=== PATIENT | female | born 1965 | race Caucasian/White ===

== ENCOUNTER → 2016-06-06 | Outpatient (CLI) | payer MEDICAID ==
[~2016-06-06] MED LIST: ACHD5005 PO; ALBU2.5V52 INH; ALPR.5T PO; ALPR0.254 PO; ALPR1T PO; AMOX-355 PO; BACL20TA PO; BENZ100C8 PO; DCS100C PO; FLC1T PO; FLT05NA16 NSEACH; FLUO20CA25 PO; FLUO40CA12 PO; FOLIC ACID; HYDR-229 PO; HYDR1TAB PO; HYOS0.1217 PO; LACT10SO33 PO; LEVO750T24 PO; LORA-407 PO; NAPR500T3 PO; NSTU5 PO; ONDA8TAB6 PO; POLY17PO23 PO; PROM25TA14 PO; QUET150T PO; RIZA10TA20 PO; SENN8.6T80 PO; SEROQUEL; TPR25T PO; TRAM50TA2 PO; TRAZ100T92 PO; TRZ100T; WHEA730P PO
--- OUTSIDE RECORDS SUMMARY | 2016-06-06 09:14 | XMS REPORT | Continuity of Care Document ---
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 Medications Current Home Medications Medication Dose Units Route Directions Days/Qty Instructions Start Date Rizatriptan Benzoate 10 Mg/Tab 0 Oral As Directed 1 tab at onset; repeat after 2 hours if significant relief is not attained; maximum: 3 tabs in a 24-hour period 10/22/12 Fluoxetine Hcl 40 Mg 40 Mg Oral Bedtime 10/22/12 Topiramate 25 Mg 25 Mg Oral Twice A Day 10/22/12 Alprazolam 0.25 Mg 0.25 Mg Oral Three Times A Day 05/02/15 Trazodone Hcl 100 Mg 100 Mg Oral Bedtime 05/02/15 Baclofen 20 Mg 20 Mg Oral Bedtime 05/02/15 Naproxen 500 Mg 500 Mg Oral Twice A Day 05/02/15 Promethazine Hcl (Phenergan Tablet) 25 Mg 25 Mg Oral Every 6 Hours as needed for Nausea/Vomiting 05/02/15 Past Home Medications Medication Directions Ordered Status Fluoxetine Hcl (Prozac) 20 Mg Capsule, 40 Mg Oral Daily 04/10/09 Discontinued Trazodone Hcl 100 Mg Tablet, 04/10/09 Discontinued Alprazolam 0.5 Mg Tablet, 1 Mg Oral Daily 04/10/09 Discontinued Acetaminophen/Hydrocodone Bitart 1 Each Tablet, 1 Each Oral Q4hr Prn Discontinued Amoxicillin/Clavulanate Potassium 1 Each Tablet, 1 Each Oral Twice A Day 05/19 Discontinued Ondansetron Hcl 8 Mg Tablet, 8 Mg Oral Three Times A Day 06/22/09 Discontinued Docusate Sodium 100 Mg Cap, 300 Mg Oral Twice A Day 05/16/10 Discontinued Wheat Dextrin 730 Gm Powder, 730 Gm Oral Twice A Day 05/16/10 Discontinued Senna 8.6 Mg Tab, 8.6 Mg Oral Twice A Day 05/16/10 Discontinued Polyethylene Glycol 17 Gm Pack, 17 Gm Oral Daily 05/16/10 Discontinued Lactulose 10 G/15 Ml Btl, 30 Ml Oral 3-4 Times Daily 05/16/10 Discontinued Acetaminophen/Hydrocodone Bitart 1 Each Tablet, 1 Each Oral Q 4 - 6 Hrs Prn 11/21/11 Discontinued Lorazepam 2 Mg Tablet, 1 Tab Oral Twice Daily And Prn 01/25/12 Discontinued Acetaminophen/Hydrocodone Bitart 1 Each Tablet, 1 - 2 Each Oral Every 6 Hours as needed 01/25/12 Discontinued Hyoscyamine Sulfate 0.125 Mg Tab.rapdis, 0.125 Mg Oral 05/13/12 Discontinued [Folic Acid] , 05/13/12 Discontinued [Folic Acid] , 05/13/12 Discontinued Topiramate 25 Mg Tablet, 1 Tab Oral Daily 10/05/12 Discontinued [Seroquel] , 10/05/12 Discontinued Tramadol Hcl 50 Mg Tablet, 50 Mg Oral Every 4HRS 10/05/12 Discontinued Alprazolam 1 Mg Tab, 1 Mg Oral Daily 10/22/12 Discontinued Folic Acid 1 Mg Tablet, 1 Tab Oral Daily 10/22/12 Discontinued Quetiapine Fumarate 150 Mg Tab.sr.24h, 150 Mg Oral Bedtime 10/22/12 Discontinued Benzonatate 100 Mg Capsule, 100 Mg Oral Three Times A Day as needed 10/22/12 Discontinued Fluticasone Propionate 16 Gm [place], 2 Sprays Each Nostril Daily 10/22/12 Discontinued Nystatin 5 Ml Susp, 5 Ml Oral Give Every 6 Hr On Schedule 10/29/12 Discontinued Levofloxacin 750 Mg Tablet, 750 Mg Oral Daily@1100 10/29/12 Discontinued Albuterol Sulfate 2.5 Mg/3 Ml Nebu, 2.5 Mg Inhalation Respiratory Four Times A Day 10/29/12 Discontinued Social History Social History Problem Response Recorded Date/Time Alcohol Use Denies Use 10/07/2013 12:30am Recreational Drug Use No 10/07/2013 12:30am Recent Foreign Travel No 10/07/2013 12:30am Recent Infectious Disease Exposure No 10/07/2013 12:30am Hospitalization with Isolation Denies 10/07/2013 12:30am Sexually Transmitted Disease No 10/07/2013 12:30am HIV/AIDS No 10/07/2013 12:30am Sexually Transmitted Disease No 10/07/2013 12:30am Hospitalization with Isolation Denies 10/07/2013 12:30am Hospital Discharge Instructions No hospital discharge instructions. Plan of Care Discharge Date 02/08/16 10:31am Instructions/Education Provided DR. SMALLS-POST EPIDURAL INST Prescriptions See Medication Section Functional Status No functional status results. Allergies, Adverse Reactions, Alerts Allergen Type Severity Reaction Status Last Updated Sulfa (Sulfonamide Antibiotics) ([id number]) Allergy Unknown Active simvastatin ([id number]) Allergy Mild Active 06/30/12 Immunizations No immunization records. Vital Signs Acute Vital Signs Vital Response Date/Time Temperature (Fahrenheit) 98.1 degrees F (97.6 - 99.5) 02/08/2016 9:53am Temperature (Calculated Celsius) 36.13978 degrees C (36.4 - 37.5) 02/08/2016 9:53am Temperature Source Tympanic 02/08/2016 9:53am Pulse Rate (adult) 62 bpm (60 - 90) 02/08/2016 10:30am Respiratory Rate 19 bpm (12 - 24) 02/08/2016 10:30am O2 Sat by Pulse Oximetry 99 % (88 - 100) 02/08/2016 10:30am Blood Pressure 121/81 mm Hg 02/08/2016 10:30am Blood Pressure Mean 81 mm Hg 02/08/2016 9:53am Pain Numeric Pain Scale 2 02/08/2016 10:30am Height (Feet) 5 feet 02/08/2016 9:53am Height (Inches) 2.00 inches 02/08/2016 9:53am Height (Calculated Centimeters) 157.125551 cm 02/08/2016 9:53am Weight (Pounds) 129 pounds 02/08/2016 9:53am Weight (Ounces) 0.0 oz 02/08/2016 9:53am Weight (Calculated Grams) 91363.42 gm 02/08/2016 9:53am Weight (Calculated Kilograms) 58.231551 kilograms 02/08/2016 9:53am Calculated BMI 23.6 02/08/2016 9:53am Results No known relevant diagnostic tests, laboratory data and/or discharge summary. Procedures No known history of procedures. Encounters Encounter Location Arrival/Admit Date Discharge/Depart Date Attending Provider Departed Clinic [facility] 02/08/16 9:37am 02/08/16 10: 31am ALBA SMALLS MD
--- NOTE | 2016-06-06 10:59 | Diagnostic Imaging Report ---
PROCEDURE: MRI lumbar spine. TECHNIQUE: Multiplanar, multisequence MRI of the lumbar spine was performed without contrast. INDICATION: Back pain. FINDINGS: There are no previous MRI examinations available for comparison. The plain film examination of the lumbar spine performed on 08/10/2015 failed to show any sign of an acute abnormality. On this exam, the parasagittal images show the vertebral body heights and alignment to be within normal limits and similar to the plain film study. The intervertebral spaces are also well maintained although there is desiccation of the disc at every level, particularly at L3-L4 and L4-L5. At the L3-L4 level, there is a slight disc bulge centrally. The disc flattens the ventral aspect of the thecal sac and narrows the AP diameter to approximately 11.8 mm. There is mild narrowing of the neural foramina bilaterally at this level. At the L4-L5 level, there is also a disc bulge centrally. The disc narrows the AP diameter to 10.4 mm. There is moderate narrowing of the neural foramina bilaterally at this level. There is also slight disc bulge centrally at L5-S1. The AP diameter of the thecal sac at this level is narrowed to 12.1 mm. There is mild narrowing of the neural foramina bilaterally at this level as well. The remainder of the lumbar spine is unremarkable for spinal stenosis or nerve root encroachment. There is no abnormal signal arising from the osseous structures to suggest bone edema or fracture. There is no sign of a cord lesion either. There is no paraspinal mass visualized. IMPRESSION: 1. There is mild degenerative disc disease at L3-L4, L4-L5, and L5-S1. There is no evidence for central stenosis at any of these levels, but there is mild narrowing of the neural foramina bilaterally at L3-L4 and L5-S1 and moderate narrowing of the neural foramina bilaterally at L4-L5. 2. There is no sign of an acute bony abnormality or of a cord lesion. Dictated by: Dictated on workstation # [id number]
== END ==
LOC: RAD 09:11
PROVIDERS: ATTEND Pain Medicine Pain Medicine
DX: M54.5 Low back pain (principal)
CPT/HCPCS: 72148

== ENCOUNTER 2016-07-25 10:23 | Outpatient (CLI) | payer MEDICAID ==
[~2016-07-25] VITALS: Ht 157.5 cm; Wt 54.4 kg
--- OUTSIDE RECORDS SUMMARY | 2016-07-25 10:26 | XMS REPORT | Continuity of Care Document ---
Author Author [facility] Organization [facility] Address Unknown Phone Unavailable Care Team Providers Care Service Delivery Supervisor Name Role Phone VIRGINIA WAITE DO PCP Insurance Providers Payer Name Policy Number Subscriber Name Relationship Self Pay Ivett Montiel 18 Self / Same As Patient Advance Directives Directive Response Recorded Date/Time Advance Directives No 02/08/16 9:53am Health Care Power of Back Pad Inspector No 02/08/16 9:53am Organ Donor Yes 02/08/16 [...] needed 10/22/12 Discontinued Fluticasone Propionate 16 Gm [place], 2 Sprays Each Nostril Daily 10/22/12 Discontinued [...] Reaction Status Last Updated Sulfa (Sulfonamide Antibiotics) ([id number]) Allergy Unknown Active simvastatin ([id number]) Allergy Mild Active 06/30/12 Immunizations No immunization records. Vital Signs Acute Vital Signs Vital Response Date/Time Temperature (Fahrenheit) 98.1 degrees F (97.6 - 99.5) 02/08/2016 9:53am Temperature (Calculated Celsius) 36.37558 degrees C (36.4 - 37.5) 02/08/2016 9:53am [...] 2.00 inches 02/08/2016 9:53am Height (Calculated Centimeters) 157.011059 cm 02/08/2016 9:53am Weight (Pounds) 129 pounds 02/08/2016 9:53am Weight (Ounces) 0.0 oz 02/08/2016 9:53am Weight (Calculated Grams) 39172.42 gm 02/08/2016 9:53am Weight (Calculated Kilograms) 58.302882 kilograms 02/08/2016 9:53am Calculated BMI 23.6 02/08/2016 9:53am Results No known relevant diagnostic tests, laboratory data and/or discharge summary. Procedures No known history of procedures. Encounters Encounter Location Arrival/Admit Date Discharge/Depart Date Attending Provider Departed Clinic [facility] 02/08/16 9:37am 02/08/16 10: 31am ALBA SMALLS MD
[2016-07-25] MEDS ORDERED: TRIAMCINOLONE ACET (KENALOG-40) 40 MG/ML 1 ML VIAL ONE (10:29)
[2016-07-25] MEDS ORDERED: BUPIVACAINE 0.25% 30 ML (SENSORCAINE) VIAL ONE (10:29)
[2016-07-25 10:37] VITALS: BP 93/65
[2016-07-25 11:15] VITALS: BP 81/68
--- NOTE | 2016-07-25 11:51 | Pain Medicine-Procedure ---
Procedure Pre-Op/Post-Op Diagnosis Diagnosis: disc disorder with radiculopathy, lumbar Indications for Operation low back and hip pain Attending Surgeon Nathalia Procedure Date of Service: Jul 25, 2016 Procedure: Lumbar Epidural Steroid Injection at the L5/S1 Level under Fluoroscopic Guidance and left sacroiliac joint injection Procedure: Patient was identified in the holding area. After risks, benefits, and alternatives were discussed with the patient, informed consent was obtained. Patient was brought to the fluoroscopy suite and placed prone on the procedure room table. A time out was performed. Vital signs were monitored throughout the procedure. The patients low back was prepped and draped in the usual sterile fashion. The patients skin was anesthetized using 2% Lidocaine. A Tuohy needle was inserted and advanced to the L5-S1 epidural space under fluoroscopic guidance using the loss of resistance technique and intermittent projection of fluoroscopy. There was no paresthesia with needle placement. The needle position was confirmed in both the AP and lateral view. After negative aspiration 2ml of non-ionic contrast was injected under live fluoroscopy which showed good spread of the contrast in the epidural space at the appropriate level, there was no intravascular or subarachnoid spread. Again, after negative aspiration for heme or CSF, 2 ml of 0.25% Bupivicaine, 2ml of preservative free normal saline, and 80mg of Kenalog was injected. The needle was removed and a sterile bandage was placed. Attention was then directed to the left sacroiliac joint which was identified under fluoroscopic guidance. The skin overlying the posterior inferior one third of the sacroiliac joint was anesthetized with 1 percent lidocaine and a 22 -gauge 3-1/2 inch needle was inserted and advanced into the joint. Following negative aspiration a total of 40 mg of Kenalog and 2 mL of 0.25 percent bupivacaine was injected. Needle was flushed with lidocaine and removed. Sterile bandage was applied. Patient tolerated the procedures well with no apparent complications. Complications None ALBA SMALLS MD Jul 25, 2016 11:51 am
== END 2016-07-25 11:16 | disposition home or self-care (01) ==
LOC: CARD 10:23
PROVIDERS: ATTEND Pain Medicine Pain Medicine
DX: M51.16 Intervertebral disc disorders with radiculopathy, lumbar region (principal); M53.3 Sacrococcygeal disorders, not elsewhere classified; Z79.899 Other long term (current) drug therapy
CPT/HCPCS: 27096; 62323

== ENCOUNTER 2017-07-02 13:19 | Outpatient (CLI) | payer MEDICAID ==
[~2017-07-02] VITALS: Ht 157.5 cm; Wt 61.2 kg
[~2017-07-02 13:19] MED LIST changes: +NAPR-915 PO; -NAPR500T3 PO
[2017-07-02] MEDS ORDERED: methylPREDNISolone 80 MG/ML (DEPO MEDROL) VIAL ONE (13:21)
[2017-07-02 13:30] VITALS: BP 113/64
[2017-07-02] MEDS ORDERED: LIDOCAINE 1% INJ 50 ML (XYLOCAINE) VIAL ONE (13:44)
[2017-07-02 13:53] VITALS: BP 115/70
== END 2017-07-02 13:55 ==
LOC: CARD 13:19
PROVIDERS: ATTEND Pain Medicine Interventional Pain Medicine
DX: M47.816 Spondylosis without myelopathy or radiculopathy, lumbar region (principal)
CPT/HCPCS: 62323

== ENCOUNTER 2017-08-27 12:55 | Outpatient (CLI) | payer MEDICAID ==
[~2017-08-27] VITALS: Ht 157.5 cm; Wt 61.2 kg
[~2017-08-27 12:55] MED LIST changes: +TRAZ-190 PO; -TRAZ100T92 PO
[2017-08-27] MEDS ORDERED: methylPREDNISolone 80 MG/ML (DEPO MEDROL) VIAL ONE (13:16)
[2017-08-27 13:46] VITALS: BP 114/76
[2017-08-27] MEDS ORDERED: LIDOCAINE 1% INJ 50 ML (XYLOCAINE) VIAL ONE (13:50)
[2017-08-27 14:02] VITALS: BP 113/79
--- NOTE | 2017-08-27 23:12 | OPERATIVE REPORT ---
DATE OF SERVICE: 08/27/2017 DIAGNOSIS: Lumbar spondylosis. OPERATIVE PROCEDURE: Right-sided facet joint nerve block at L2, 3, 4, and 5. ANESTHESIA: IV sedation COMPLICATIONS: None. CLINICAL SURGICAL COURSE: After being placed under general sedation, the patient was placed on the table in the prone position. The lower lumbar region was prepped with Betadine and dressed with sterile drapery. A syringe of 2% Lidocaine solution, a 25-gauge, 1.5 in needle was used to draw a wheel over an area in between the transverse process and the sacral ala and over the transverse process of L2, 3, 4, and 5 on the right side. Then using a 25-gauge, 3.5 in spinal needle under fluoroscopy, 1 cc of the Lidocaine solution was injected at the area calculated to be the medial branch at the three levels. The needle was then withdrawn, anesthetizing as it was withdrawn. The patient was allowed to come out of anesthesia and returned to the postop area. The patient had no complications and reported significant decrease in her pain level. Job ID: [id number] DocumentID: [id number] Dictated Date: 08/27/2017 14:01:17 Certified Fire Investigator Date: 08/27/2017 23:11:40 Dictated By: MATTHEW RODRIGUEZ DO
== END 2017-08-27 14:03 ==
LOC: CARD 12:55
PROVIDERS: ATTEND Pain Medicine Interventional Pain Medicine
DX: M47.816 Spondylosis without myelopathy or radiculopathy, lumbar region (principal); M47.817 Spondylosis without myelopathy or radiculopathy, lumbosacral region; M51.37 Other intervertebral disc degeneration, lumbosacral region
CPT/HCPCS: 62323; 64493; 64494; 64495

== ENCOUNTER 2017-12-18 10:10 | Outpatient (RCR) | payer MEDICAID | END 2018-01-06 14:21 | disposition home or self-care (01) | PROVIDERS: ATTEND Nurse Practitioner | DX: M51.16 Intervertebral disc disorders with radiculopathy, lumbar region (principal) ==

== ENCOUNTER → 2018-01-13 | Outpatient (CLI) | payer MEDICAID ==
--- NOTE | 2018-01-13 09:15 | Diagnostic Imaging Report ---
PROCEDURE: MRI lumbar spine. TECHNIQUE: Multiplanar, multisequence MRI of the lumbar spine was performed without contrast. INDICATION: Back pain, bilateral hip pain. Exam compared 06/06/2016. FINDINGS; Lumbar body heights are maintained. The alignment is anatomic. Conus normal. The nerves of the cauda equina reveal a normal pattern of dispersal. Without an appreciable fracture line, there is some new mild marrow edema involving the right L4 and L5 pedicles and at least left-sided L5 pedicle. There is also some right greater than left-sided posterior paraspinal muscular edema from the L4 through the upper S1 levels. No paravertebral fluid collection. Visualized psoas musculature normal. No vertebral body marrow edema. The alignment is stable and normal. No endplate irregularity. Desiccated bulging disc at L4-L5 results in mild bilateral greater right neural foraminal stenosis and a mild degree of central canal narrowing is present also secondary to facet arthrosis and thickening of the ligamenta of flava. More mild degenerative changes in the discs, endplates and posterior elements of L5-S1 stable without resultant stenosis. Remaining levels unremarkable. IMPRESSION: Posterior paraspinal muscle edema mid to lower lumbar spine asymmetric greater right than left with mild lower lumbar pedicular marrow edema without fracture line. Correlate with injury as the pattern suggests a sequelae of a strain. No fluid collection, abscess or vertebral body abnormality. No intrathecal or acute epidural disease. Increased posterior element degenerative changes at the L4-L5 level with mild canal and right greater than left foraminal stenosis. Remaining levels unremarkable. Dictated by: Dictated on workstation # [id number]
== END ==
LOC: RAD 08:06
PROVIDERS: ATTEND Pain Medicine Interventional Pain Medicine
DX: M48.061 Spinal stenosis, lumbar region without neurogenic claudication (principal); M47.816 Spondylosis without myelopathy or radiculopathy, lumbar region; M51.37 Other intervertebral disc degeneration, lumbosacral region; G95.19 Other vascular myelopathies
CPT/HCPCS: 72148

== ENCOUNTER 2019-01-16 06:42 | Emergency (ER) | payer MEDICAID ==
[~2019-01-16] VITALS: Ht 210.8 cm; Wt 61.2 kg
[2019-01-16] MEDS ORDERED: fentaNYL INJECTION 100 MCG/2 ML AMP ONE (07:09)
--- NOTE | 2019-01-16 07:22 | ED Hip Pain/Injury ---
General Chief Complaint: Hip/Pelvic Problems Stated Complaint: SEVERE HIP PAIN Nursing Triage Note: PT AMBULATED W LIMP CO OF R HIP PAIN AND BACK PAIN STATES HAS DGD AND GETS INJECTIONS REGULARLY, STATES ROAD IN A CAR YESTERDAY AND SINCE HAS SEVERE BACK PAIN THAT GOES INTO HIP Source: patient Exam Limitations: no limitations History of Present Illness Date Seen by Provider: Jan 16, 2019 Time Seen by Provider: 07:17 Initial Comments This 51-year-old female presents complaining of severe low back pain. She has well documented lumbar disc disease. She is followed by the pain specialist at [facility] where fell and has recently received injections into her SI joints for treatment of her low back pain. Patient denies associated bowel or bladder dysfunction. She's had no fever or chills. She denies foot drop or numbness in the legs. Patient's had no dysuria, frequency, or flank pain. Patient would like help with her back pain and will follow-up with [facility] sore throat tomorrow. Allergies and Home Medications Allergies Coded Allergies: simvastatin (Unverified Allergy, Mild, 06/30/12) Sulfa (Sulfonamide Antibiotics) (Unverified Allergy, Unknown, 10/22/12) Home Medications Alprazolam 0.25 Mg Tablet, 0.25 MG PO TID, (Reported) Baclofen 20 Mg Tablet, 20 MG PO HS, (Reported) Fluoxetine Hcl 40 Mg Capsule, 40 MG PO HS, (Reported) Naproxen 500 Mg Tablet, 500 MG PO BID, (Reported) Promethazine HCl 25 Mg Tablet, 25 MG PO Q6H PRN for NAUSEA/VOMITING, (Reported) Rizatriptan Benzoate 10 Mg/Tab Tab.rapdis, 0 PO UD, (Reported) 1 tab at onset;repeat after 2 hours if significant relief is not attained; maximum: 3 tabs in a 24-hour period Topiramate 25 Mg Tab, 25 MG PO BID, (Reported) Trazodone HCl 100 Mg Tablet, 100 MG PO HS, (Reported) Patient Home Medication List Home Medication List Reviewed: Yes Review of Systems Constitutional: no symptoms reported EENTM: no symptoms reported Respiratory: no symptoms reported; No cough Cardiovascular: no symptoms reported; No chest pain Gastrointestinal: No abdominal pain, No diarrhea, No nausea, No vomiting Genitourinary: no symptoms reported Musculoskeletal: see HPI, back pain (low right lumbar) Skin: no symptoms reported Psychiatric/Neurological: No Symptoms Reported Past Jjhsrbs-Prsefk-Mrkpni Hx Past Med/Social Hx: Reviewed Nursing Past Med/Soc Hx Patient Social History Alcohol Use: Denies Use Recreational Drug Use: No Smoking Status: Current Everyday Smoker Type Used: Cigarettes 2nd Hand Smoke Exposure: No Recent Foreign Travel: No Contact w/Someone Who Travel: No Recent Infectious Disease Expo: No Recent Hopitalizations: No Immunizations Up To Date Tetanus Booster (TDap): Less than 5yrs Date of Pneumonia Vaccine: Oct 11, 2012 Date of Influenza Vaccine: Feb 28, 2015 Seasonal Allergies Seasonal Allergies: No Past Medical History Surgeries: Yes (DXLS FOR OVARIAN CYST X3, STENT IN PANCREAS, LEFT SHOULDER, LEFT KNEE) Respiratory: Yes (tobaccoism) Chronic Bronchitis Cardiac: No Neurological: Yes Reproductive Disorders: Yes Female Reproductive Disorders: Ovarian Cyst Sexually Transmitted Disease: No HIV/AIDS: No Gastrointestinal: Yes (CONSTIPATION, HX OF STENT IN PANCREAS) Pancreatitis Musculoskeletal: Yes Degenerate Disk Disease, Chronic Back Pain Endocrine: No Loss of Vision: Denies Hearing Impairment: Denies Cancer: No Psychosocial: Yes (INSOMNIA) Depression Integumentary: No Blood Disorders: No Adverse Reaction/Blood Tranf: No Family Medical History Heart Disease, Hypertension Physical Exam Vital Signs Vital Signs - First Documented 01/16/19 06:50 Temp 96.9 Pulse 77 Resp 18 B/P (MAP) 103/45 (64) Pulse Ox 100 Capillary Refill : Less Than 3 Seconds Height, Weight, BMI Height: 5'23.00" Weight: 135lbs. 0.0oz. 61.345810yz; 24.7 BMI Method:Stated General Appearance: Anxious, Cachetic, Mild Distress HEENT: Normal ENT Inspection Neck: Normal Inspection, Supple Cardiovascular: Regular Rate, Rhythm, No Murmur Respiratory: Lungs Clear, Normal Breath Sounds Gastrointestinal: Normal Bowel Sounds, Non Tender, Soft Extremity: Normal Capillary Refill, Normal Inspection, Normal Range of Motion Neurologic/Psychiatric: Oriented x3, No Motor/Sensory Deficits Skin: Normal Color, Warm/Dry Progress/Results/Core Measures Results/Orders Vital Signs/I&O 01/16/19 06:50 Temp 96.9 Pulse 77 Resp 18 B/P (MAP) 103/45 (64) Pulse Ox 100 Blood Pressure Mean: 64 Progress Progress Note : Time: 07:22 Progress Note Patient is given 50 g of fentanyl IM for her low back pain. Initial ECG Impression Date: Jan 16, 2019 Departure Impression Primary Impression: Low back pain Qualified Codes: M54.5 - Low back pain Disposition: 01 HOME, SELF-CARE Condition: Improved Departure-Patient Inst. Decision time for Depature: 07:23 Referrals: NO,LOCAL PHYSICIAN (PCP) Primary Care Physician Patient Instructions: Low Back Pain in Adults Add. Discharge Instructions: Flexeril and Toradol as prescribed. Follow-up with your pain management doctor tomorrow. Return if any problems or questions. All discharge instructions reviewed with patient and/or family. Voiced understanding. Scripts Cyclobenzaprine HCl (Cyclobenzaprine HCl) 10 Mg Tablet 10 MG PO TID PRN for SPASMS, #20 TAB Prov: ANALY STOREY MD 01/16/19 Ketorolac Tromethamine (Ketorolac Tromethamine) 10 Mg Tablet 10 MG PO Q6H PRN for PAIN-MODERATE, #20 TAB Prov: ANALY STOREY MD 01/16/19 ANALY STOREY MD Jan 16, 2019 07:22
[2019-01-16 07:28] VITALS: BP 103/45
[2019-01-16] MEDS ORDERED: KETO10TA PO (07:28)
[2019-01-16] MEDS ORDERED: CYCL10TA9 PO (07:28)
== END 2019-01-16 07:38 | disposition home or self-care (01) ==
LOC: EDUNIT# 06:42 → ER 06:45
DX: M54.5 Low back pain (principal); M51.36 Other intervertebral disc degeneration, lumbar region; J42 Unspecified chronic bronchitis; F32.9 Major depressive disorder, single episode, unspecified; G47.00 Insomnia, unspecified; F17.210 Nicotine dependence, cigarettes, uncomplicated; Z88.8 Allergy status to other drugs, medicaments and biological substances; Z88.2 Allergy status to sulfonamides; Z82.49 Family history of ischemic heart disease and other diseases of the circulatory system
CPT/HCPCS: 96372; 99284

== ENCOUNTER → 2019-03-24 | Outpatient (CLI) | payer OTHER ==
[~2019-03-24] MED LIST changes: +CYCL10TA9 PO; +KETO10TA PO
--- NOTE | 2019-03-24 11:02 | Diagnostic Imaging Report ---
Pelvis and bilateral hips at 1015 hours. INDICATION: Bilateral hip pain. Single AP view of the pelvis and AP and lateral views of both hips were obtained. FINDINGS: There is no fracture, dislocation or acute bony abnormality evident. The hip and sacroiliac joints are fairly well maintained and appear similar to the prior exam of 01/11/2008. The soft tissues are unremarkable. There is a metallic figure of 8 overlying the right ilium. There is also another metallic density overlying the left mid abdomen. Reportedly these are extraneous to the patient. IMPRESSION: There is no evidence for an acute bony abnormality. Dictated by: Dictated on workstation # [id number]
== END ==
LOC: RAD 09:36
PROVIDERS: ATTEND Surgery
DX: Z02.71 Encounter for disability determination (principal); M25.551 Pain in right hip; M25.552 Pain in left hip
CPT/HCPCS: 73523

== ENCOUNTER 2019-04-17 08:41 | Emergency (ER) | payer MEDICAID, OTHER ==
[~2019-04-17] VITALS: Ht 157 cm; Wt 54.9 kg
[2019-04-17] MEDS ORDERED: fentaNYL INJECTION 100 MCG/2 ML AMP IM ONE (09:30)
--- NOTE | 2019-04-17 09:37 | ED Back Pain ---
General Chief Complaint: Back Problems Stated Complaint: LOW BACK PAIN; NASAL PAIN Nursing Triage Note: Patient ambulatory to ER FT1 with complaint of a sore nose from bhlowing her nose. She states it has been red and inflamed for 2 days. She has been taking OTC benadryl, using warm compresses, peroxide and triple antibiotic ointment with no relief. Patient also complains of tenderness to the right side of her neck and a headache. Patient also complains of lower back pain which is chronic. She states she was scheduled for back injections on thursday but was unable to make the appointment since she was sick. She does have an appointment scheduled for this . She has had no recent new injuries. Nursing Sepsis Screen: No Definite Risk Source of Information: Patient Exam Limitations: No Limitations History of Present Illness Date Seen by Provider: Apr 17, 2019 Time Seen by Provider: 09:32 Initial Comments This 51-year-old white female presents with exacerbation of her chronic low back pain and infection to the soft tissues of the nose. The patient has significant disc disease as seen on her CTs to the lumbar spine. She received some periodic injections to the back which is significantly help with her sciatica. She is scheduled for injections this coming (4 days). The patient has had to receive an occasional injection of fentanyl to relieve her acute back pain. Patient denies foot drop or urinary or bowel retention. The patient has had a significant rhinorrhea causing her blow her nose so frequently that she is developed cellulitis to the tip of the nose. Allergies and Home Medications Allergies Coded Allergies: simvastatin (Unverified Allergy, Mild, 06/30/12) Sulfa (Sulfonamide Antibiotics) (Unverified Allergy, Unknown, 10/22/12) Home Medications Naproxen 500 Mg Tablet, 500 MG PO BID, (Reported) Trazodone HCl 100 Mg Tablet, 100 MG PO HS, (Reported) Patient Home Medication List Home Medication List Reviewed: Yes Review of Systems Constitutional: No chills, No fever EENTM: other (pain to the tip of the nose with associated redness swelling) Respiratory: No cough Cardiovascular: No chest pain Gastrointestinal: No abdominal pain, No nausea Genitourinary: No dysuria, No frequency Musculoskeletal: see HPI, back pain Skin: No change in color, No rash Psychiatric/Neurological: No Symptoms Reported Past Vccwmcl-Diezag-Ilnaxj Hx Past Med/Social Hx: Reviewed Nursing Past Med/Soc Hx Patient Social History Alcohol Use: Denies Use Recreational Drug Use: No Smoking Status: Current Everyday Smoker Type Used: Cigarettes 2nd Hand Smoke Exposure: No Recent Foreign Travel: No Contact w/Someone Who Travel: No Recent Infectious Disease Expo: No Recent Hopitalizations: No Physical Abuse: No Sexual Abuse: No Mistreated: No Fear: No Immunizations Up To Date Tetanus Booster (TDap): Less than 5yrs Date of Pneumonia Vaccine: Oct 11, 2012 Date of Influenza Vaccine: Feb 28, 2019 Seasonal Allergies Seasonal Allergies: No Past Medical History Surgeries: Yes (DXLS FOR OVARIAN CYST X3, STENT IN PANCREAS, LEFT SHOULDER, LEFT KNEE) Section, Orthopedic Respiratory: Yes (tobaccoism) Chronic Bronchitis Cardiac: No Neurological: Yes Reproductive Disorders: Yes Female Reproductive Disorders: Ovarian Cyst Sexually Transmitted Disease: No HIV/AIDS: No Gastrointestinal: Yes (CONSTIPATION, HX OF STENT IN PANCREAS) Pancreatitis Musculoskeletal: Yes Degenerate Disk Disease, Chronic Back Pain Endocrine: No Loss of Vision: Denies Hearing Impairment: Denies Cancer: No Psychosocial: Yes (INSOMNIA) Depression Integumentary: No Blood Disorders: No Adverse Reaction/Blood Tranf: No Family Medical History Heart Disease, Hypertension Physical Exam Vital Signs Vital Signs - First Documented 04/17/19 08:55 Temp 36.8 Pulse 115 Resp 18 B/P (MAP) 94/67 (76) Pulse Ox 98 O2 Delivery Room Air Capillary Refill : Less Than 3 Seconds Height, Weight, BMI Height: 5'23.00" Weight: 135lbs. 0.0oz. 61.716455dy; 22.00 BMI Method:Stated General Appearance: Mild Distress HEENT: Other (there is cellulitis to the distal portion of the tip of the nose. No abscesses present.) Neck: Full Range of Motion, Normal Inspection Cardiovascular: Regular Rate, Rhythm Respiratory: Chest Non Tender Gastrointestinal: Normal Bowel Sounds Back: Other (there is tenderness palpation over both SI joints.) Extremity: Normal Capillary Refill, Normal Inspection Neurologic/Psychiatric: No Motor/Sensory Deficits Skin: Normal Color, Warm/Dry Progress/Results/Core Measures Results/Orders Vital Signs/I&O 04/17/19 08:55 Temp 36.8 Pulse 115 Resp 18 B/P (MAP) 94/67 (76) Pulse Ox 98 O2 Delivery Room Air Blood Pressure Mean: 76 POS Progress Progress Note : Time: 09:38 Progress Note I discussed the cellulitis to the nose and the flare of the low back disc disease. Patient received 50 g of fentanyl IM in the emergency department. She was placed on Augmentin 875 twice a day for the next week. She was asked follow up with her caregivers on Thursday. She was invited to return to the emergency department if she had any further problems or questions. Departure Impression Primary Impression: Back pain Qualified Codes: M54.5 - Low back pain; G89.29 - Other chronic pain Additional Impression: Cellulitis Qualified Codes: L03.211 - Cellulitis of face Disposition: HOME, SELF-CARE Condition: Improved Departure-Patient Inst. Decision time for Depature: 09:39 Referrals: [facility]/BASSAM CORTEZ,LOCAL PHYSICIAN (PCP) Primary Care Physician Patient Instructions: Cellulitis (Skin Infection), Adult (DC), Low Back Pain (DC) Add. Discharge Instructions: Augmentin as prescribed. [facility]. Return if any problems or questions. All discharge instructions reviewed with patient and/or family. Voiced understanding. Scripts Amoxicillin/Potassium Clav (Augmentin 875-125 Tablet) 1 Each Tablet 1 EACH PO BID for 7 Days, #14 TAB 0 Refills Prov: ANALY STOREY MD 04/17/19 ANALY STOREY MD Apr 17, 2019 09:37 POS
[2019-04-17] MEDS ORDERED: AMOX-358 PO (09:41)
[2019-04-17 09:50] VITALS: BP 94/67
--- OUTSIDE RECORDS SUMMARY | 2019-05-12 18:08 | XMS REPORT ---
Author Author Ivett CERVANTES Organization [facility] Address [address] [place] [address] Care Team Providers Care Rehabilitation Attendant Name Role Phone JESSICASelvin KYLAH Unavailable PROBLEMS Type Condition ICD9-CM Code TGP87-HX Code Onset Dates Condition S tatus SNOMED Code Problem Lumbar back pain with radiculopathy affecting le ft lower extremity M54.17 Active 980817686 Problem Tobacco abuse Z72.0 Active 524880 000 Problem Controlled substance agreement terminated Z92.89 Active 181941116 Problem Seasonal allergic rhinitis, unspecified allergic rhinitis trigger J30.2 Active 321760585 ALLERGIES No Information ENCOUNTERS Encounter Location Date Diagnosis [facility] [address] [facility] [id number] [address] [place] [id number] Feb, Acute right otitis media H66 .91 ; Acute otitis externa of right ear, unspecified type H60.501 and Nausea R11.0 [facility] [address] [facility] [id number] [address] [place] [id number] Jan, Non-recurrent acute suppurat raymond otitis media of right ear without spontaneous rupture of tympanic membrane H66.001 [facility] [address] [facility] [id number] [address] [place] [id number] Jan, [facility] [address] [facility] [id number] [address] [place] [id number] Nov, [facility] [address] [place] [id number] [address] [place] [id number] Nov, Well woman exam with routine gynecological exam Z01.419 and Breast cancer screening Z12.39 [facility] [address] [facility] [id number] [address] [place] [id number] Nov, Lumbar back pain with radicu lopathy affecting left lower extremity M54.17 [facility] [address] [facility] [id number] [address] [place] [address] Jun, Seborrheic keratoses L82.1 [facility] [address] [facility] [id number] [address] [place] [id number] Jun, Thyroid disorder E07.9 [facility] [address] [facility] [id number] [address] [place] [phone] Jun, Thyroid disorder E07.9 [facility] [address] [facility] [id number] [address] [place] [phone] May, Thyroid disorder E07.9 and S kin lesion L98.9 [place] [address] [facility] [id number] [address] [place] [id number] May, [facility] [address] [facility] [id number] [address] [place] [phone] Feb, Canker sores oral K12.0 [place] [address] [facility] [id number] [address] [place] [phone] Jan, Grade II hemorrhoids K64.1 [place] [address] [place] [id number] [address] [place] [id number] Nov, Right foot pain M79.671 [place] [address] [place] [id number] [address] [place] [id number] Feb, Encounter for special screen ing examination Z13.9 and Encounter for immunization Z23 [place] [address] [facility] [id number] [address] [place] [phone] Oct, Tobacco abuse Z72.0 and Lumb ar back pain with radiculopathy affecting left lower extremity M54.17 [place] [address] [facility] [id number] [address] [place] [id number] September, Non-intractable vomiting wit h nausea, unspecified vomiting type R11.2 and Epigastric pain R10.13 [place] [address] [place] [id number] [address] [place] [id number] Aug, Seasonal allergic rhinitis, unspecified allergic rhinitis trigger J30.2 and Stomatitis K12.1 [facility] [address] [id number] [address] [place] [id number] May, Nasal abscess J34.0 [facility] [address] [id number] [address] [place] [id number] Oct, Controlled substance agreeme nt terminated Z92.89 [facility] [address] [id number] [address] [place] [id number] Oct, [place] [address] [facility] [id number] [address] [place] [id number] September, Pharyngitis, unspecified giulia ology J02.9 and Other forms of stomatitis K12.1 [place] [address] [facility] [id number] [address] [place] [id number] September, [facility] [address] [id number] [address] [place] [id number] September, Aphthous ulcer of mouth K12. 0 [place] [address] [facility] [id number] [address] [place] [id number] September, Dental examination Z01.20 [place] [address] [facility] [id number] [address] [place] [id number] September, Other seasonal allergic rhin itis J30.2 ; Anxiety F41.9 and Insomnia G47.00 [facility] [address] [id number] [address] [place] [id number] Aug, Dental caries K02.9 [facility] [address] [id number] [address] [place] [id number] Aug, Encounter for dental examina tion Z01.20 [facility] [address] [id number] [address] [place] [id number] Jul, Encounter for dental examina tion Z01.20 [place] [address] [place] [id number] [address] [place] [address] Jul, Anxiety F41.9 ; Insomnia G47 .00 ; Chronic left-sided low back pain with sciatica, sciatica laterality unspecified M54.40 and Nausea R11.0 [facility] [address] [address] May, Scratched by cat, initial en counter W55.03XA [facility] [address] [id number] May, [place] [address] [address] May, [place] [address] [address] Apr, Insomnia G47.00 and Bilatera l low back pain with left-sided sciatica M54.42 [place] [address] [address] Mar, Anxiety F41.9 ; Insomnia G47 .00 ; Family history of colon cancer Z80.0 ; History of colon polyps Z86.010 ; Diarrhea R19.7 and Headache R51 [place] [address] [address] Mar, [address] [address] Mar, Gastroenteritis K52.9 [place] [address] [address] Jan, Left upper arm pain 729.5 ; Anxiety state, unspecified 300.00 and Left upper extremity numbness 782.0 [place] [address] [address] Jan, Carpal tunnel syndrome 354.[address] [address] Dec, Tobacco abuse 305.1 [facility] [address] [place] [id number] [address] [place] [phone] Nov, Headache 784.0 [facility] [address] [place] [id number] [address] [place] [id number] Nov, Bronchiolitis 466.19 and Tob acco abuse 305.1 [facility] [address] [address] Oct, Anxiety state, unspecified 3 00.00 ; Insomnia, unspecified 780.52 ; Pain in joint, site unspecified 719.40 ; Migraine, unspecified without mention of intractable migraine without mention of status migrainosus 346.90 and 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 [place] [address] [address] September, [place] [address] [address] September, Nondependent tobacco use dis order 305.1 ; Routine child health exam V20.2 ; Migraine, unspecified without mention of intractable migraine without mention of status migrainosus 346.90 ; Dietary counseling and surveillance V65.3 ; Hip pain, right 719.45 ; Exercise counseling V65.41 ; COPD (chronic obstructive pulmonary disease) 496 and Anxiety state, unspecified 300.00 [facility] [address] [place] [id number] [address] [place] [id number] Aug, [facility] [address] [place] [id number] [address] [place] [id number] Aug, [facility] [address] [place] [id number] [address] [place] [id number] Jul, [facility] [address] [place] [id number] [address] [place] [id number] Jul, [facility] [address] [place] [id number] [address] [place] [id number] Jul, [facility] [address] [id number] [address] [place] [address], [place] [address] Jul, [facility] [address] [id number] [address] [place] [address], [place] [address] Jul, [facility] [address] [id number] [address] [place] [address], [place] [address] Jul, [facility] [address] [id number] [address] [place] [address], [place] [id number] Jul, [facility] [address] [id number] [address] [place] [address], [place] [address] Jul, [facility] [address] [id number] [address] [place] [address], [place] [address] Jun, [facility] [address] [id number] [address] [place] [address], [place] [address] Jun, [facility] [address] [id number] [address] [place] [address], [place] [address] Jun, [facility] [address] [id number] [address] [place] [address], [place] [address] Jun, [facility] [address] [id number] [address] [place] [address], [place] [address] May, [facility] [address] [id number] [address] [place] [address], [place] [address] May, [facility] [address] [id number] [address] [place] [address], [place] [address] Apr, [facility] [address] [id number] [address] [place] [address], [place] [address] Apr, [facility] [address] [id number] [address] [place] [address], [place] [address] Apr, [facility] [address] [id number] [address] [place] [address], [place] [address] Apr, [facility] [address] [id number] [address] [place] [address], [place] [address] Feb, [facility] [address] [id number] [address] [place] [address], [place] [address] Feb, [facility] [address] [id number] [address] [place] [address], [place] [address] Feb, [facility] [address] [id number] [address] [place] [address], [place] [address] Feb, [facility] [address] [id number] [address] [place] [address], [place] [address] Jan, [facility] [address] [id number] [address] [place] [address], [place] [address] Jan, [facility] [address] [id number] [address] [place] [address], [place] [address] Jan, [facility] [address] [id number] [address] [place] [address], [place] [address] Jan, [facility] [address] [id number] [address] [place] [address], [place] [address] Jan, [facility] [address] [id number] [address] [place] [address], [place] [address] Jan, [facility] [address] [id number] [address] [place] [address], [place] [address] Dec, [facility] [address] [id number] [address] [place] [address], [place] [address] Dec, [facility] [address] [id number] [address] [place] [address], [place] [address] Dec, [facility] [address] [id number] [address] [place] [address], [place] [address] Dec, [facility] [address] [id number] [address] [place] [address], [place] [address] Dec, [facility] [address] [id number] [address] [place] [address], [place] [address] Dec, [facility] [address] [id number] [address] [place] [id number] Dec, [facility] [address] [id number] [address] [place] [id number] Dec, [facility] [address] [id number] [address] [place] [id number] Dec, [facility] [address] [id number] [address] [place] [phone] Nov, [facility] [address] [id number] [address] [place] [id number] Nov, [facility] [address] [id number] [address] [place] [phone] Nov, [facility] [address] [id number] [address] [place] [id number] Nov, [facility] [address] [id number] [address] [place] [id number] Nov, [facility] [address] [id number] [address] [place] [id number] Nov, [facility] [address] [id number] [address] [place] [id number] Nov, [facility] [address] [id number] [address] [place] [id number] Nov, [facility] [address] [id number] [address] [place] [id number] Nov, [facility] [address] [id number] [address] [place] [id number] Nov, [facility] [address] [id number] [address] [place] [id number] Nov, [facility] [address] [id number] [address] [place] [phone] Nov, IMMUNIZATIONS No Known Immunizations SOCIAL HISTORY Never Assessed REASON FOR VISIT PLAN OF CARE VITAL SIGNS Height 62 in 2013-11-30 Weight 132.5 lbs 2013-11-30 Temperature 96.7 degrees Fahrenheit 2013-11-30 Heart Rate 76 bpm 2013-11-30 Respiratory Rate 16 2013-11-30 Blood pressure systolic 88 mmHg 2013-11-30 Blood pressure diastolic 62 mmHg 2013-11-30 MEDICATIONS No Known Medications RESULTS No Results PROCEDURES Procedure Date Ordered Result Body Site COMPLETE CBC W/AUTO DIFF WBC November 30, 2013 ASSAY THYROID STIM HORMONE November 30, 2013 ASSAY OF LIPASE November 30, 2013 ASSAY OF AMYLASE November 30, 2013 COMPREHEN METABOLIC PANEL November 30, 2013 ASSAY OF VITAMIN D November 30, 2013 VISIT November 30, 2013 VENIPUNCT, ROUTINE* November 30, 2013 INSTRUCTIONS MEDICATIONS ADMINISTERED No Known Medications MEDICAL (GENERAL) HISTORY Type Description Date Medical History endometriosis Medical History ovarian cysts Medical History hyperthyroidism hx Medical History migraines Medical History Anxiety and Depression Medical History insomnia Medical History allergic rhinitis Medical History Arthritis Medical History Migraine Medical History Tobacco Abuse Medical History Chronic pancreatitis Medical History History of colon polyps Medical History Tubular adenoma of colon Medical History Controlled substance agreement terminate d Surgical History section 2005 Surgical History laparoscopic ovarian cyst drained Hospitalization History surgeries Hospitalization History [facility], PT was going to harm herself. there on Thu and out on August 2016
--- OUTSIDE RECORDS SUMMARY | 2019-05-12 18:08 | XMS REPORT ---
Author Author Ivett CERVANTES Organization [facility] Address [address] [place] [address] Care Team Providers Care Carpet Jack Name Role Phone JESSICASelvin KYLAH Unavailable PROBLEMS Type Condition ICD9-CM Code UMU30-JE Code Onset Dates Condition S tatus SNOMED Code Problem Lumbar back pain with radiculopathy affecting le ft lower extremity M54.17 Active 215249121 Problem Tobacco abuse Z72.0 Active 073419 000 Problem Controlled substance agreement terminated Z92.89 Active [id number] Problem Seasonal allergic rhinitis, unspecified allergic rhinitis trigger J30.2 Active [id number] ALLERGIES No Information ENCOUNTERS Encounter Location Date Diagnosis [facility] [address] [facility] [id number] [address] [place] [phone] Feb, Acute right otitis media H66 .91 ; Acute otitis externa of right ear, unspecified type H60.501 and Nausea R11.0 [facility] [address] [facility] [id number] [address] [place] [phone] Jan, Non-recurrent acute suppurat raymond otitis media of right ear without spontaneous rupture of tympanic membrane H66.001 [facility] [address] [facility] [id number] [address] [place] [phone] Jan, [facility] [address] [facility] [id number] [address] [place] [phone] Nov, [facility] [address] [place] [id number] [address] [place] [address] Nov, Well woman exam with routine gynecological exam Z01.419 and Breast cancer screening Z12.39 [facility] [address] [facility] [id number] [address] [place] [phone] Nov, Lumbar back pain with radicu lopathy affecting left lower extremity M54.17 [facility] [address] [facility] [id number] [address] [place] [address] Jun, Seborrheic keratoses L82.1 [facility] [address] [facility] [id number] [address] [place] [phone] Jun, Thyroid disorder E07.9 [facility] [address] [facility] [id number] [address] [place] [phone] Jun, Thyroid disorder E07.9 [facility] [address] [facility] [id number] [address] [place] [phone] May, Thyroid disorder E07.9 and S kin lesion L98.9 [place] [address] [facility] [id number] [address] [place] [phone] May, [facility] [address] [facility] [id number] [address] [place] [phone] Feb, Canker sores oral K12.0 [place] [address] [facility] [id number] [address] [place] [address] Jan, Grade II hemorrhoids K64.1 [place] [address] [place] [id number] [address] [place] [address] Nov, Right foot pain M79.671 [place] [address] [place] [id number] [address] [place] [phone] Feb, Encounter for special screen ing examination Z13.9 and Encounter for immunization Z23 [place] [address] [facility] [id number] [address] [place] [phone] Oct, Tobacco abuse Z72.0 and Lumb ar back pain with radiculopathy affecting left lower extremity M54.17 [place] [address] [facility] [id number] [address] [place] [address] September, Non-intractable vomiting wit h nausea, unspecified vomiting type R11.2 and Epigastric pain R10.13 [place] [address] [place] [id number] [address] [place] [phone] Aug, Seasonal allergic rhinitis, unspecified allergic rhinitis trigger J30.2 and Stomatitis K12.1 [facility] [address] [id number] [address] [place] [address] May, Nasal abscess J34.0 [facility] [address] [id number] [address] [place] [phone] Oct, Controlled substance agreeme nt terminated Z92.89 [facility] [address] [id number] [address] [place] [phone] Oct, [place] [address] [facility] [id number] [address] [place] [phone] September, Pharyngitis, unspecified giulia ology J02.9 and Other forms of stomatitis K12.1 [place] [address] [facility] [id number] [address] [place] [phone] September, [facility] [address] [id number] [address] [place] [address] September, Aphthous ulcer of mouth K12. 0 [place] [address] [facility] [id number] [address] [place] [address] September, Dental examination Z01.20 [place] [address] [facility] [id number] [address] [place] [phone] September, Other seasonal allergic rhin itis J30.2 ; Anxiety F41.9 and Insomnia G47.00 [facility] [address] [id number] [address] [place] [id number] Aug, Dental caries K02.9 [facility] [address] [id number] [address] [place] [id number] Aug, Encounter for dental examina tion Z01.20 [facility] [address] [id number] [address] [place] [id number] Jul, Encounter for dental examina tion Z01.20 [place] [address] [place] [id number] [address] [place] [address] Jul, Anxiety F41.9 ; Insomnia G47 .00 ; Chronic left-sided low back pain with sciatica, sciatica laterality unspecified M54.40 and Nausea R11.0 [facility] [address] [address] May, Scratched by cat, initial en counter W55.03XA [facility] [address] [address] May, [place] [address] [id number] May, [place] [address] [address] Apr, Insomnia G47.00 and Bilatera l low back pain with left-sided sciatica M54.42 [place] [address] [address] Mar, Anxiety F41.9 ; Insomnia G47 .00 ; Family history of colon cancer Z80.0 ; History of colon polyps Z86.010 ; Diarrhea R19.7 and Headache R51 [place] [address] [address] Mar, [address] [address] Mar, Gastroenteritis K52.9 [place] [address] [id number] Jan, Left upper arm pain 729.5 ; Anxiety state, unspecified 300.00 and Left upper extremity numbness 782.0 [place] [address] [address] Jan, Carpal tunnel syndrome 354.[address] [address] Dec, Tobacco abuse 305.1 [facility] [address] [place] [id number] [address] [place] [phone] Nov, Headache 784.0 [facility] [address] [place] [id number] [address] [place] [address] Nov, Bronchiolitis 466.19 and Tob acco abuse 305.1 [facility] [address] [id number] Oct, Anxiety state, unspecified 3 00.00 ; Insomnia, unspecified 780.52 ; Pain in joint, site unspecified 719.40 ; Migraine, unspecified without mention of intractable migraine without mention of status migrainosus 346.90 and 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 [place] [address] [address] September, [place] [address] [address] September, Nondependent tobacco use dis order 305.1 ; Routine child health exam V20.2 ; Migraine, unspecified without mention of intractable migraine without mention of status migrainosus 346.90 ; Dietary counseling and surveillance V65.3 ; Hip pain, right 719.45 ; Exercise counseling V65.41 ; COPD (chronic obstructive pulmonary disease) 496 and Anxiety state, unspecified 300.00 [facility] [address] [place] [id number] [address] [place] [phone] Aug, [facility] [address] [place] [id number] [address] [place] [id number] Aug, [facility] [address] [place] [id number] [address] [place] [address] Jul, [facility] [address] [place] [id number] [address] [place] [phone] Jul, [facility] [address] [place] [id number] [address] [place] [phone] Jul, [facility] [address] [id number] [address] [place] [address], [place] [address] Jul, [facility] [address] [id number] [address] [place] [address], [place] [address] Jul, [facility] [address] [id number] [address] [place] [address], [place] [address] Jul, [facility] [address] [id number] [address] [place] [address], [place] [address] Jul, [facility] [address] [id number] [address] [place] [address], [place] [address] Jul, [facility] [address] [id number] [address] [place] [address], [place] [address] Jun, [facility] [address] [id number] [address] [place] [address], [place] [address] Jun, [facility] [address] [id number] [address] [place] [address], [place] [address] Jun, [facility] [address] [id number] [address] [place] [address], [place] [address] Jun, [facility] [address] [id number] [address] [place] [address], [place] [address] May, [facility] [address] [id number] [address] [place] [address], [place] [address] May, [facility] [address] [id number] [address] [place] [address], [place] [address] Apr, [facility] [address] [id number] [address] [place] [address], [place] [address] Apr, [facility] [address] [id number] [address] [place] [address], [place] [address] Apr, [facility] [address] [id number] [address] [place] [address], [place] [address] Apr, [facility] [address] [id number] [address] [place] [address], [place] [address] Feb, [facility] [address] [id number] [address] [place] [address], [place] [address] Feb, [facility] [address] [id number] [address] [place] [address], [place] [address] Feb, [facility] [address] [id number] [address] [place] [address], [place] [address] Feb, [facility] [address] [id number] [address] [place] [address], [place] [address] Jan, [facility] [address] [id number] [address] [place] [address], [place] [address] Jan, [facility] [address] [id number] [address] [place] [address], [place] [address] Jan, [facility] [address] [id number] [address] [place] [address], [place] [address] Jan, [facility] [address] [id number] [address] [place] [address], [place] [address] Jan, [facility] [address] [id number] [address] [place] [address], [place] [address] Jan, [facility] [address] [id number] [address] [place] [address], [place] [address] Dec, [facility] [address] [id number] [address] [place] [address], [place] [address] Dec, [facility] [address] [id number] [address] [place] [address], [place] [address] Dec, [facility] [address] [id number] [address] [place] [address], [place] [address] Dec, [facility] [address] [id number] [address] [place] [address], [place] [address] Dec, [facility] [address] [id number] [address] [place] [address], [place] [address] Dec, [facility] [address] [id number] [address] [place] [address] Dec, [facility] [address] [id number] [address] [place] [address] Dec, [facility] [address] [id number] [address] [place] [id number] Dec, [facility] [address] [id number] [address] [place] [phone] Nov, [facility] [address] [id number] [address] [place] [address] Nov, [facility] [address] [id number] [address] [place] [id number] Nov, [facility] [address] [id number] [address] [place] [address] Nov, [facility] [address] [id number] [address] [place] [address] Nov, [facility] [address] [id number] [address] [place] [address] Nov, [facility] [address] [id number] [address] [place] [phone] Nov, [facility] [address] [id number] [address] [place] [address] Nov, [facility] [address] [id number] [address] [place] [address] Nov, [facility] [address] [id number] [address] [place] [address] Nov, [facility] [address] [id number] [address] [place] [address] Nov, [facility] [address] [id number] [address] [place] [id number] Nov, IMMUNIZATIONS No Known Immunizations SOCIAL HISTORY Never Assessed REASON FOR VISIT PLAN OF CARE VITAL SIGNS MEDICATIONS No Known Medications RESULTS No Results PROCEDURES No Known procedures INSTRUCTIONS MEDICATIONS ADMINISTERED No Known Medications MEDICAL [...]
--- OUTSIDE RECORDS SUMMARY | 2019-05-12 18:10 | XMS REPORT | Continuity of Care Document ---
Author Organization Unknown Address Unknown Phone Unavailable Allergies Active Description Code Type Severity Reaction Onset Reported/Identified Relationship to Patient Clinical Status Yes simvastatin [id number] Drug Aller gy Mild N/A 04/10/2009 Yes Sulfa (Sulfonamide Antibiotics) [id number] Drug Allergy Unknown N/A 013 Yes Sulfa (Sulfonamide Antibiotics) Drug Allergy N/A N/A 11/08/2013 Medications There is no data. 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 06/01/2011 Ot 564.00 UNS PEC CONSTIPATION 11/21/2011 Ot 577.0 ACUT E PANCREATITIS 11/21/2011 Ot 789.09 ABD OMINAL PAIN, OTHER SPECIFIED SITE 01/25/2012 Ot 789.01 ABD OMINAL PAIN, RIGHT UPPER QUADRANT 01/25/2012 Ot 789.06 ABD OMINAL PAIN, EPIGASTRIC 05/13/2012 Ot 789.06 ABD OMINAL PAIN, EPIGASTRIC 10/05/2012 JERAMIE STERN Ot 842.00 SPRAIN OF WRIST NOS 10/05/2012 JERAMIE STERN Ot 845.00 SPRAIN OF ANKLE NOS 10/05/2012 JERAMIE STERN Ot 959.3 ELB/FOREARM/WRST INJ NOS 10/05/2012 JERAMIE STERN Ot E000.8 OTHER EXTERNAL CAUSE STATUS 10/05/2012 JERAMIE STERN Ot E029.9 OTHER ACTIVITY 10/05/2012 JERAMIE STERN Ot E849.4 ACCID IN RECREATION AREA 10/05/2012 JERAMIE STERN Ot E888.9 FALL NOS 10/29/2012 LARON HOUGH MD Ot 112.0 THRUSH 10/29/2012 LARON HOUGH MD Ot 276.1 HYPOSMOLALITY 10/29/2012 LARON HOUGH MD Ot 276.69 OTHER FLUID OVERLOAD 10/29/2012 LARON HOUGH MD Ot 276.8 HYPOPOTASSEMIA 10/29/2012 LARON HOUGH MD Ot 300.29 OTHER ISOLATED OR SPECIFIC PHOBIAS 10/29/2012 LARON HOUGH MD Ot 305.1 TOBACCO USE DISORDER 10/29/2012 LARON HOUGH MD Ot 346.90 MIGRAINE UNSPECIFIED W/O INTRACT MGRN W/ 10/29/2012 LARON HOUGH MD Ot 48 6 PNEUMONIA, ORGANISM NOS 10/29/2012 LARON HOUGH MD Ot 577.0 ACUTE PANCREATITIS 10/29/2012 LARON HOUGH MD Ot 780.52 INSOMNIA, UNSPECIFIED 10/29/2012 LARON HOUGH MD Ot V03.82 PROPHYLACTIC VACC AGAINST STREPTOCOCCUS 11/13/2012 WARREN GREEN, EDI Best Ot 577 .0 ACUTE PANCREATITIS 10/07/2013 KENNY HENRY MD Ot 311 DEPRESSIVE DISORDER NEC 10/07/2013 KENNY HENRY MD Ot 491. 9 CHRONIC BRONCHITIS NOS 10/07/2013 KENNY HENRY MD Ot 883. 0 OPEN WOUND OF FINGER 10/07/2013 KENNY HENRY MD Ot E029 .9 OTHER ACTIVITY 10/07/2013 KENNY HENRY MD Ot E920 .4 ACCID-OTHER HAND TOOLS 10/07/2013 KENNY HENRY MD Ot V06. 1 [id number], COMBINED [ 11/08/2013 VIRGINIA WAIET DO 346.90 MIGRAINE UNSPECIFIED WITHOUT MENTION OF INTRACTABLE MIGRAINE WITHOUT MENTION OF STATUS MIGRAINOSUS 11/08/2013 KYLAH CERVANTES APRN 346 .90 MIGRAINE UNSPECIFIED WITHOUT MENTION OF INTRACTABLE MIGRAINE WITHOUT MENTION OF STATUS MIGRAINOSUS 11/08/2013 KYLAH CERVANTES APRN 346 .90 MIGRAINE UNSPECIFIED WITHOUT MENTION OF INTRACTABLE MIGRAINE WITHOUT MENTION OF STATUS MIGRAINOSUS 11/08/2013 POORNIMA ARIZA APRN 346.90 MIGRAINE UNSPECIFIED WITHOUT MENTION OF INTRACTABLE MIGRAINE WITHOUT MENTION OF STATUS MIGRAINOSUS 11/08/2013 KYLAH CERVANTES APRN 346 .90 MIGRAINE UNSPECIFIED WITHOUT MENTION OF INTRACTABLE MIGRAINE WITHOUT MENTION OF STATUS MIGRAINOSUS 11/08/2013 MADL TITLE INSPECTOR, KYLAH L 346 .90 MIGRAINE UNSPECIFIED WITHOUT MENTION OF INTRACTABLE MIGRAINE WITHOUT MENTION OF STATUS MIGRAINOSUS 11/08/2013 ELODIA CALLE ALBA 346.90 MIGRAINE UNSPECIFIED WITHOUT MENTION OF INTRACTABLE MIGRAINE WITHOUT MENTION OF STATUS MIGRAINOSUS 11/08/2013 MADL TITLE INSPECTORKYLAH L 346 .90 MIGRAINE UNSPECIFIED WITHOUT MENTION OF INTRACTABLE MIGRAINE WITHOUT MENTION OF STATUS MIGRAINOSUS 11/08/2013 DANIA JIMÉNEZ MD 346.9 0 MIGRAINE UNSPECIFIED WITHOUT MENTION OF INTRACTABLE MIGRAINE WITHOUT MENTION OF STATUS MIGRAINOSUS 11/08/2013 WAITE DO VIRGINIA K 346.90 MIGRAINE UNSPECIFIED WITHOUT MENTION OF INTRACTABLE MIGRAINE WITHOUT MENTION OF STATUS MIGRAINOSUS 11/08/2013 VIRGINIA WAITE DO 346.90 MIGRAINE UNSPECIFIED WITHOUT MENTION OF INTRACTABLE MIGRAINE WITHOUT MENTION OF STATUS MIGRAINOSUS 11/08/2013 DANIA JIMÉNEZ MD 346.9 0 MIGRAINE UNSPECIFIED WITHOUT MENTION OF INTRACTABLE MIGRAINE WITHOUT MENTION OF STATUS MIGRAINOSUS 11/30/2013 MADL TITLE INSPECTOR, KYLAH L 300 .00 ANXIETY UNSPEC 11/30/2013 MADL TITLE INSPECTOR, KYLAH L 577 .1 CHRONIC PANCREATITIS 11/30/2013 MADL TITLE INSPECTOR, KYLAH L 719 .40 PAIN IN JOINT SITE UNSPECIFIED 11/30/2013 MADL TITLE INSPECTOR, KYLAH L 780 .79 OTHER MALAISE AND FATIGUE 11/30/2013 MADL TITLE INSPECTOR, KYLAH L 300 .00 ANXIETY UNSPEC 11/30/2013 MADL TITLE INSPECTOR, KYLAH L 577 .1 CHRONIC PANCREATITIS 11/30/2013 MADL TITLE INSPECTOR, KYLAH L 719 .40 PAIN IN JOINT SITE UNSPECIFIED 11/30/2013 MADL TITLE INSPECTOR, KYLAH L 780 .79 OTHER MALAISE AND FATIGUE 11/30/2013 ARIZA TITLE INSPECTOR, POORNIMA R 300.00 ANXIETY UNSPEC 11/30/2013 ARIZA TITLE INSPECTOR, POORNIMA R 577.1 CHRONIC PANCREATITIS 11/30/2013 ARIZA TITLE INSPECTOR, POORNIMA R 719.40 PAIN IN JOINT SITE UNSPECIFIED 11/30/2013 ARIZA TITLE INSPECTOR, POORNIMA R 780.79 OTHER MALAISE AND FATIGUE 11/30/2013 MADL TITLE INSPECTOR, KYLAH L 300 .00 ANXIETY UNSPEC 11/30/2013 MADL TITLE INSPECTOR, KYLAH L 577 .1 CHRONIC PANCREATITIS 11/30/2013 MADL TITLE INSPECTOR, KYLAH L 719 .40 PAIN IN JOINT SITE UNSPECIFIED 11/30/2013 MADL TITLE INSPECTOR, KYLAH L 780 .79 OTHER MALAISE AND FATIGUE 11/30/2013 MADL TITLE INSPECTOR, KYLAH L 300 .00 ANXIETY UNSPEC 11/30/2013 MADL TITLE INSPECTORSAHILKYLAH L 577 .1 CHRONIC PANCREATITIS 11/30/2013 MADL TITLE INSPECTOR, KYLAH L 719 .40 PAIN IN JOINT SITE UNSPECIFIED 11/30/2013 MADL TITLE INSPECTOR KYLAH L 780 .79 OTHER MALAISE AND FATIGUE 11/30/2013 CLIFTON DDS, ALBA 300.00 ANXIETY UNSPEC 11/30/2013 CLIFTON DDS, ALBA 57 7.1 CHRONIC PANCREATITIS 11/30/2013 CLIFTON DDS, ALBA 719.40 PAIN IN JOINT SITE UNSPECIFIED 11/30/2013 CLIFTON DDS, ALBA 780.79 OTHER MALAISE AND FATIGUE 11/30/2013 MADL TITLE INSPECTORSAHILKYLAH L 300 .00 ANXIETY UNSPEC 11/30/2013 MADL TITLE INSPECTORSAHILKYLAH L 577 .1 CHRONIC PANCREATITIS 11/30/2013 MADL SAHIL QUEENNYA L 719 .40 PAIN IN JOINT SITE UNSPECIFIED 11/30/2013 SAHIL CERVANTES APRNNYA L 780 .79 OTHER MALAISE AND FATIGUE 11/30/2013 DANIA JIMÉNEZ MD 300.0 0 ANXIETY UNSPEC 11/30/2013 DANIA JIMÉNEZ MD 577.1 CHRONIC PANCREATITIS 11/30/2013 DANIA JIMÉNEZ MD 719.4 0 PAIN IN JOINT SITE UNSPECIFIED 11/30/2013 DANIA JIMÉNEZ MD 780.7 9 OTHER MALAISE AND FATIGUE 11/30/2013 WAITE DO, VIRGINIA K 300.00 ANXIETY UNSPEC 11/30/2013 WAITE DO, VIRGINIA K 577.1 CHRONIC PANCREATITIS 11/30/2013 WAITE DO, VIRGINIA K 719.40 PAIN IN JOINT SITE UNSPECIFIED 11/30/2013 WAITE DO, VIRGINIA K 780.79 OTHER MALAISE AND FATIGUE 11/30/2013 WAITE DO, VIRGINIA K 300.00 ANXIETY UNSPEC 11/30/2013 WAITE DO, VIRGINIA K 577.1 CHRONIC PANCREATITIS 11/30/2013 VIRGINIA WAITE DO K 719.40 PAIN IN JOINT SITE UNSPECIFIED 11/30/2013 VIRGINIA WAITE DO K 780.79 OTHER MALAISE AND FATIGUE 11/30/2013 DANIA JIMÉNEZ MD 300.0 0 ANXIETY UNSPEC 11/30/2013 DANIA JIMÉNEZ MD 577.1 CHRONIC PANCREATITIS 11/30/2013 DANIA JIMÉNEZ MD 719.4 0 PAIN IN JOINT SITE UNSPECIFIED 11/30/2013 DANIA JIMÉNEZ MD 780.7 9 OTHER MALAISE AND FATIGUE 12/26/2013 JESSICAL TITLE INSPECTOR, KYLAH L 682 .2 CELLULITIS AND ABSCESS OF TRUNK 12/26/2013 TO QUEEN POORNIMA R 682.2 CELLULITIS AND ABSCESS OF TRUNK 12/26/2013 MADL TITLE INSPECTOR, KYLAH L 682 .2 CELLULITIS AND ABSCESS OF TRUNK 12/26/2013 MADL TITLE INSPECTOR, KYLAH L 682 .2 CELLULITIS AND ABSCESS OF TRUNK 12/26/2013 ALBA CLIFTON DDS 68 2.2 CELLULITIS AND ABSCESS OF TRUNK 12/26/2013 MADL TITLE INSPECTOR, KYLAH L 682 .2 CELLULITIS AND ABSCESS OF TRUNK 12/26/2013 DANIA JIMÉNEZ MD 682.2 CELLULITIS AND ABSCESS OF TRUNK 12/26/2013 VIRGINIA WAITE DO K 682.2 CELLULITIS AND ABSCESS OF TRUNK 12/26/2013 VIRGINIA WAITE DO K 682.2 CELLULITIS AND ABSCESS OF TRUNK 12/26/2013 DANIA JIMÉNEZ MD 682.2 CELLULITIS AND ABSCESS OF TRUNK 01/02/2014 MADL TITLE INSPECTOR, KYLAH L 268 .9 UNSPECIFIED VITAMIN D DEFICIENCY 01/02/2014 MADL TITLE INSPECTOR, KYLAH L 477 .9 ALLERGIC RHINITIS CAUSE UNSPECIFIED 01/02/2014 MADL TITLE INSPECTOR, KYLAH L 780 .52 INSOMNIA UNSPECIFIED 01/02/2014 SAMANTHA ARIZA APRNIA R 268.9 UNSPECIFIED VITAMIN D DEFICIENCY 01/02/2014 SAMANTHA ARIZA APRNIA R 477.9 ALLERGIC RHINITIS CAUSE UNSPECIFIED 01/02/2014 SAMANTHA ARIZA APRNIA R 780.52 INSOMNIA UNSPECIFIED 01/02/2014 JESSICAL TITLE INSPECTOR, KYLAH L 268 .9 UNSPECIFIED VITAMIN D DEFICIENCY 01/02/2014 MADL TITLE INSPECTORVIOLETTAA L 477 .9 ALLERGIC RHINITIS CAUSE UNSPECIFIED 01/02/2014 JESSICAL TITLE INSPECTORVIOLETTA WaltonA L 780 .52 INSOMNIA UNSPECIFIED 01/02/2014 JESSICAL TITLE INSPECTORVIOLETTAA L 268 .9 UNSPECIFIED VITAMIN D DEFICIENCY 01/02/2014 MADL TITLE INSPECTORVIOLETTAA L 477 .9 ALLERGIC RHINITIS CAUSE UNSPECIFIED 01/02/2014 MADL TITLE INSPECTOR, KYLAH L 780 .52 INSOMNIA UNSPECIFIED 01/02/2014 CLIFTON DDS, ALBA 26 8.9 UNSPECIFIED VITAMIN D DEFICIENCY 01/02/2014 CLIFTON DDS, ALBA 47 7.9 ALLERGIC RHINITIS CAUSE UNSPECIFIED 01/02/2014 CLIFTON DDS, ALBA 780.52 INSOMNIA UNSPECIFIED 01/02/2014 MADL TITLE INSPECTORVIOLETTA WaltonA L 268 .9 UNSPECIFIED VITAMIN D DEFICIENCY 01/02/2014 MADL TITLE INSPECTORVIOLETTAA L 477 .9 ALLERGIC RHINITIS CAUSE UNSPECIFIED 01/02/2014 MADL TITLE INSPECTORVIOLETTAA L 780 .52 INSOMNIA UNSPECIFIED 01/02/2014 DANIA JIMÉNEZ MD 268.9 UNSPECIFIED VITAMIN D DEFICIENCY 01/02/2014 DANIA JIMÉNEZ MD 477.9 ALLERGIC RHINITIS CAUSE UNSPECIFIED 01/02/2014 DANIA JIMÉNEZ MD 780.5 2 INSOMNIA UNSPECIFIED 01/02/2014 WAITE DO, VIRGINIA K 268.9 UNSPECIFIED VITAMIN D DEFICIENCY 01/02/2014 WAITE DO, VIRGINIA K 477.9 ALLERGIC RHINITIS CAUSE UNSPECIFIED 01/02/2014 WAITE DO, VIRGINIA K 780.52 INSOMNIA UNSPECIFIED 01/02/2014 WAITE DO, VIRGINIA K 268.9 UNSPECIFIED VITAMIN D DEFICIENCY 01/02/2014 WAITE DO, VIRGINIA K 477.9 ALLERGIC RHINITIS CAUSE UNSPECIFIED 01/02/2014 WAITE DO, VIRGINIA K 780.52 INSOMNIA UNSPECIFIED 01/02/2014 DANIA JIMÉNEZ MD 268.9 UNSPECIFIED VITAMIN D DEFICIENCY 01/02/2014 DANIA JIMÉNEZ MD 477.9 ALLERGIC RHINITIS CAUSE UNSPECIFIED 01/02/2014 DANIA JIMÉNEZ MD 780.5 2 INSOMNIA UNSPECIFIED 01/18/2014 POORNIMA ARIZA APRN 305.1 TOBACCO ABUSE 01/18/2014 TO VIDALNPOORNIMA R 461.9 SINUSITIS ACUTE 01/18/2014 MADL TITLE INSPECTOR, KYLAH L 305 .1 TOBACCO ABUSE 01/18/2014 MADL TITLE INSPECTOR, KYLAH L 461 .9 SINUSITIS ACUTE 01/18/2014 MADL TITLE INSPECTOR, KYLAH L 305 .1 TOBACCO ABUSE 01/18/2014 MADL TITLE INSPECTOR, KYLAH L 461 .9 SINUSITIS ACUTE 01/18/2014 CLIFTON DDS, ALBA 30 5.1 TOBACCO ABUSE 01/18/2014 CLIFTON DDS, ALBA 46 1.9 SINUSITIS ACUTE 01/18/2014 MADL TITLE INSPECTOR, KYLAH L 305 .1 TOBACCO ABUSE 01/18/2014 MADL TITLE INSPECTOR, KYLAH L 461 .9 SINUSITIS ACUTE 01/18/2014 DANIA JIMÉNEZ MD 305.1 TOBACCO ABUSE 01/18/2014 DANIA JIMÉNEZ MD 461.9 SINUSITIS ACUTE 01/18/2014 SHANKAR WAITE DOA K 305.1 TOBACCO ABUSE 01/18/2014 SHANKAR WAITE DOA K 461.9 SINUSITIS ACUTE 01/18/2014 WAITE DO VIRGINIA K 305.1 TOBACCO ABUSE 01/18/2014 RAVINDRA KENNEY [place] K 461.9 SINUSITIS ACUTE 01/18/2014 DANIA JIMÉNEZ MD 305.1 TOBACCO ABUSE 01/18/2014 DANIA JIMÉNEZ MD 461.9 SINUSITIS ACUTE 03/07/2014 VIOLETTA CERVANTES APRNA L 627 .8 OTHER SPECIFIED MENOPAUSAL AND POSTMENOPAUSAL DISORDERS 03/07/2014 ALBA CLIFTON DDS 62 7.8 OTHER SPECIFIED MENOPAUSAL AND POSTMENOPAUSAL DISORDERS 03/07/2014 VIOLETTA CERVANTES APRNA L 627 .8 OTHER SPECIFIED MENOPAUSAL AND POSTMENOPAUSAL DISORDERS 03/07/2014 DANIA JIMÉNEZ MD 627.8 OTHER SPECIFIED MENOPAUSAL AND POSTMENOPAUSAL DISORDERS 03/07/2014 VIRGINIA WAITE DO K 627.8 OTHER SPECIFIED MENOPAUSAL AND POSTMENOPAUSAL DISORDERS 03/07/2014 SHANKAR WAITE DOA K 627.8 OTHER SPECIFIED MENOPAUSAL AND POSTMENOPAUSAL DISORDERS 03/07/2014 DANIA JIMÉNEZ MD 627.8 OTHER SPECIFIED MENOPAUSAL AND POSTMENOPAUSAL DISORDERS 06/07/2014 DANIA JIMÉNEZ MD V58.6 9 LONG-TERM (CURRENT) USE OF OTHER MEDICATIONS 06/07/2014 VIRGINIA WAITE DO V58.69 LONG-TERM (CURRENT) USE OF OTHER MEDICATIONS 06/07/2014 VIRGINIA WAITE DO V58.69 LONG-TERM (CURRENT) USE OF OTHER MEDICATIONS 06/07/2014 DANIA JIMÉNEZ MD V58.6 9 LONG-TERM (CURRENT) USE OF OTHER MEDICATIONS 09/01/2014 DANIA JIMÉNEZ MD 716.9 0 UNSPECIFIED ARTHROPATHY SITE UNSPECIFIED 05/07/2015 PAM ABBOTT DO Ot Z01.818 05/08/2015 SEDA GREEN, CISCO Montalvo Ot 786.05 05/08/2015 CISCO STACK MD Ot 786.2 05/08/2015 GIANLUCA GREEN, LARON Carranza Ot 48 6 05/08/2015 PAM ABBOTT DO Ot Z01.818 05/08/2015 Ot 789.00 05/08/2015 Ot 789.00 05/08/2015 PAM ABBOTT DO Ot 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 00 CONSTIPATION, UNSPECIFIED 05/08/2015 PAM ABBOTT DO Ot R19. 7 DIARRHEA, UNSPECIFIED 08/15/2015 Ot M54.5 08/16/2015 Ot M54.5 08/17/2015 ALBA SMALLS MD Ot M51. 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 W RADICULO 08/17/2015 ALBA SMALLS MD Ot Z79.899 OTHER [facility] (CURRENT) DRUG THERAPY 08/28/2015 ALBA SMALLS MD Ot M51. 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 W RADICULO 09/14/2015 ALBA SMALLS MD Ot Z79.899 OTHER FABRIC PATTERN GRADER (CURRENT) DRUG THERAPY 09/24/2015 ALBA SMALLS MD, Ot M47.816 SPONDYLOSIS W/O MYELOPATHY OR RADICULOPA 09/24/2015 ALBA SMALLS MD, Ot M51. 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 W RADICULO 09/24/2015 ALBA SMALLS MD, Ot Z79.899 OTHER FABRIC PATTERN GRADER (CURRENT) DRUG THERAPY 11/26/2015 ALBA SMALLS MD, Ot M47.816 SPONDYLOSIS W/O MYELOPATHY OR RADICULOPA 11/26/2015 ALBA SMALLS MD, Ot M51. 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 W RADICULO 11/26/2015 ALBA SMALLS MD, Ot M70. 62 TROCHANTERIC BURSITIS, LEFT HIP 12/18/2015 ALBA SMALLS MD, Ot M47.816 SPONDYLOSIS W/O MYELOPATHY OR RADICULOPA 12/18/2015 ALBA SMALLS MD, Ot M51. 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 W RADICULO 12/18/2015 ALBA SMALLS MD, Ot M70. 62 TROCHANTERIC BURSITIS, LEFT HIP 01/30/2016 Ot 564.00 UNS PEC CONSTIPATION 01/30/2016 Ot 789.00 ABD OMINAL PAIN, UNSPECIFIED SITE 01/30/2016 Ot M54.5 LOW BACK PAIN 01/30/2016 SEDA GREEN, CISCO Montalvo Ot 786.05 SHORTNESS OF BREATH 01/30/2016 CISCO STACK MD Ot 786.2 COUGH 01/30/2016 Ot 789.00 ABD OMINAL PAIN, UNSPECIFIED SITE 01/31/2016 ALBA SMALLS MD, Ot M47.816 SPONDYLOSIS W/O MYELOPATHY OR RADICULOPA 01/31/2016 ALBA SMALLS MD, Ot M51. 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 W RADICULO 01/31/2016 ALBA SMALLS MD, Ot M70. 62 TROCHANTERIC BURSITIS, LEFT HIP 02/08/2016 ALBA SMALLS MD, Ot M47.816 SPONDYLOSIS W/O MYELOPATHY OR RADICULOPA 02/08/2016 ALBA MSALLS MD, Ot M51. 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 00 CONSTIPATION, UNSPECIFIED 02/13/2016 PAM ABBOTT DO Ot R19. 7 DIARRHEA, UNSPECIFIED 02/21/2016 ALBA SMALLS MD Ot M47.816 SPONDYLOSIS W/O MYELOPATHY OR RADICULOPA 02/21/2016 ALBA SMALLS MD Ot M51. 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 W RADICULO 02/21/2016 ALBA SMALLS MD Ot Z79.899 OTHER [facility] (CURRENT) DRUG THERAPY 04/25/2016 Ot 789.00 ABD OMINAL PAIN, UNSPECIFIED SITE 04/25/2016 Ot 789.00 ABD OMINAL PAIN, UNSPECIFIED SITE 04/25/2016 Ot M54.5 LOW BACK PAIN 04/25/2016 ALBA SMALLS MD Ot M51. 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 W RADICULO 05/14/2016 ALBA SMALLS MD Ot M51. 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 W RADICULO 06/03/2016 Ot 789.00 ABD OMINAL PAIN, UNSPECIFIED SITE 06/03/2016 Ot 789.00 ABD OMINAL PAIN, UNSPECIFIED SITE 06/03/2016 Ot M54.5 LOW BACK PAIN 06/05/2016 Ot 564.00 UNS PEC CONSTIPATION 06/06/2016 Ot 564.00 UNS PEC CONSTIPATION 06/09/2016 ALBA SMALLS MD Ot M54. 5 LOW BACK PAIN 06/09/2016 ALBA SMALLS MD, Ot M54. 5 LOW BACK PAIN 06/26/2016 ALBA SMALLS MD Ot M54. 5 LOW BACK PAIN 07/25/2016 ALBA SMALLS MD Ot M51. 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 W RADICULO 07/25/2016 ALBA SMALLS MD Ot M53. 3 SACROCOCCYGEAL DISORDERS, NOT ELSEWHERE 07/25/2016 ALBA SMALLS MD Ot Z79.899 OTHER FABRIC PATTERN GRADER (CURRENT) DRUG THERAPY 07/30/2016 ALBA SMALLS MD Ot M51. 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 W RADICULO 07/30/2016 ALBA SMALLS MD Ot M53. 3 SACROCOCCYGEAL DISORDERS, NOT ELSEWHERE 07/30/2016 ALBA SMALLS MD, Ot Z79.899 OTHER FABRIC PATTERN GRADER (CURRENT) DRUG THERAPY 08/21/2016 Ot 564.00 UNS PEC CONSTIPATION 08/21/2016 ALBA SMALLS MD Ot M54. 5 LOW BACK PAIN 07/01/2017 ALBA SMALLS MD, Ot M54. 5 LOW BACK PAIN 07/02/2017 MATTHEW RODRIGUEZ DO Ot M47.816 SPONDYLOSIS W/O MYELOPATHY OR RADICULOPA 07/03/2017 MATTHEW RODRIGUEZ DO Ot M47.816 SPONDYLOSIS W/O MYELOPATHY OR RADICULOPA 07/08/2017 MATTHEW RODRIGUEZ DO Ot M47.816 SPONDYLOSIS W/O MYELOPATHY OR RADICULOPA 08/27/2017 MATTHEW RODRIGUEZ DO Ot M47.816 SPONDYLOSIS W/O MYELOPATHY OR RADICULOPA 08/27/2017 MATTHEW RODRIGUEZ DO Ot M47.817 SPONDYLS W/O MYELOPATHY OR RADICULOPATHY 08/27/2017 MATTHEW RODRIGUEZ DO Ot M51.37 OTHER INTERVERTEBRAL DISC DEGENERATION, 08/28/2017 MATTHEW RODRIGUEZ DO Ot M47.816 SPONDYLOSIS W/O MYELOPATHY OR RADICULOPA 08/28/2017 MATTHEW RODRIGUEZ DO Ot M47.817 SPONDYLS W/O MYELOPATHY OR RADICULOPATHY 08/28/2017 MATTHEW RODRIGUEZ DO Ot M51.37 OTHER INTERVERTEBRAL DISC DEGENERATION, 11/19/2017 TOÑITO BROWN TITLE INSPECTOR Ot M51.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 W RADICULO 11/26/2017 TOÑITO BROWN TITLE INSPECTOR Ot M51.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 W RADICULO 12/01/2017 TOÑITO BROWN TITLE INSPECTOR Ot M51.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 W RADICULO 01/06/2018 TOÑITO BROWN TITLE INSPECTOR Ot M51.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 W RADICULO 01/15/2018 HEARNDON DO, MATTHEW L Ot G95.19 OTHER VASCULAR MYELOPATHIES 01/15/2018 HEARNDON DO, MATTHEW L Ot M47.816 SPONDYLOSIS W/O MYELOPATHY OR RADICULOPA 01/15/2018 HEARNDON DO, MATTHEW L Ot M48.061 SPINAL STENOSIS, LUMBAR REGION WITHOUT N 01/15/2018 HEARNDON DO, MATTHEW L Ot M51.37 OTHER INTERVERTEBRAL DISC DEGENERATION, 01/26/2018 HEARNDON DO, MATTHEW L Ot G95.19 OTHER VASCULAR MYELOPATHIES 01/26/2018 HEARNDON DO, MATTHEW L Ot M47.816 SPONDYLOSIS W/O MYELOPATHY OR RADICULOPA 01/26/2018 HEARNDON DO, MATTHEW L Ot M48.061 SPINAL STENOSIS, LUMBAR REGION WITHOUT N 01/26/2018 HEARNDON DO, MATTHEW L Ot M51.37 OTHER INTERVERTEBRAL DISC DEGENERATION, 12/02/2018 SLIM GREEN, ALBA Chambers Ot M54. 5 LOW BACK PAIN 12/02/2018 HEARNDON DO, MATTHEW L Ot G95.19 OTHER VASCULAR MYELOPATHIES 12/02/2018 HEARNDON DO, MATTHEW L Ot M47.816 SPONDYLOSIS W/O MYELOPATHY OR RADICULOPA 12/02/2018 HEARNDON DO, MATTHEW L Ot M48.061 SPINAL STENOSIS, LUMBAR REGION WITHOUT N 12/02/2018 HEARNDON DO, MATTHEW L Ot M51.37 OTHER INTERVERTEBRAL DISC DEGENERATION, 01/16/2019 SLIM RGEEN, ALBA Chambers Ot M54. 5 LOW BACK PAIN 01/16/2019 HEARNDON DOMATTHEW Ot G95.19 OTHER VASCULAR MYELOPATHIES 01/16/2019 HEARNDON DO, MATTHEW L Ot M47.816 SPONDYLOSIS W/O MYELOPATHY OR RADICULOPA 01/16/2019 HEARNDON DOMATTHEW L Ot M48.061 SPINAL STENOSIS, LUMBAR REGION WITHOUT N 01/16/2019 HEARNDON DO, MATTHEW L Ot M51.37 OTHER INTERVERTEBRAL DISC DEGENERATION, 01/20/2019 RALEIGH GEREN, ANALY Humphrey Ot F17.210 NICOTINE DEPENDENCE, CIGARETTES, UNCOMPL 01/20/2019 RALEIGH GREEN, ANALY Humphrey Ot F32. 9 MAJOR DEPRESSIVE DISORDER, SINGLE EPISOD 01/20/2019 ANALY STOREY MD Ot G47. 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 5 LOW BACK PAIN 01/20/2019 ANALY STOREY MD Ot Z82. 49 FAMILY HX OF ISCHEM HEART DIS AND OTH DI 01/20/2019 ANALY STOREY MD Ot Z88. 2 ALLERGY STATUS TO SULFONAMIDES STATUS 01/20/2019 ANALY STOREY MD Ot Z88. 8 ALLERGY STATUS TO OTH DRUG/MEDS/BIOL SUB 03/28/2019 SHEMAR ECHOLS MD (DDU) Ot M25.551 PAIN IN RIGHT HIP 03/28/2019 SHEMAR ECHOLS MD (DDU) Ot M25.552 PAIN IN LEFT HIP 03/28/2019 SHEMAR ECHOLS MD (DDU) Ot Z02.71 ENCOUNTER FOR DISABILITY DETERMINATION 04/17/2019 SHEMAR ECHOLS MD (DDU) Ot M25.551 PAIN IN RIGHT HIP 04/17/2019 SHEMAR ECHOLS MD (DDU) Ot M25.552 PAIN IN LEFT HIP 04/17/2019 SHEMAR ECHOLS MD (DDU) Ot Z02.71 ENCOUNTER FOR DISABILITY DETERMINATION 04/17/2019 ANALY STOREY MD Ot F17.210 NICOTINE DEPENDENCE, CIGARETTES, UNCOMPL 04/17/2019 ANALY STOREY MD Ot F32. 9 MAJOR DEPRESSIVE DISORDER, SINGLE EPISOD 04/17/2019 ANALY STOREY MD Ot G89. 29 OTHER CHRONIC PAIN 04/17/2019 ANALY STOREY MD Ot L03.211 CELLULITIS OF FACE 04/17/2019 ANALY STOREY MD Ot M54. 5 LOW BACK PAIN 04/17/2019 ANALY STOREY MD Ot Z82. 49 FAMILY HX OF ISCHEM HEART DIS AND OTH DI 04/17/2019 ANALY STOREY MD Ot Z88. 2 ALLERGY STATUS TO SULFONAMIDES STATUS 04/17/2019 ANALY STOREY MD Ot Z88. 8 ALLERGY STATUS TO OTH DRUG/MEDS/BIOL SUB Procedures Code [place] [address] THER APUTIC INJ SQ/IM 11/08/2013 J3301 JESSICA LOG INJ, PER 10 MG 11/08/2013 73174 ROUT INE VENIPUNCTURE 11/30/2013 90042 AMERITOX 11/30/2013 45935 CBC 11/30/2013 4797828 GF R CALC (RESULT ONLY) 11/30/2013 66523 CMP 11/30/2013 72912 AMYLASE 11/30/2013 19248 LIPASE 11/30/2013 49492 VIRGEN MIN D 25-HYDROXY (D2,D3, TOTAL) 11/30/2013 44242 TSH 11/30/2013 33729 I/D SIMPLE ABSCESS 01/02/2014 J3301 JESSICA LOG INJ, PER 10 MG 01/02/2014 81308 THER APUTIC INJ SQ/IM 01/02/2014 11847 OXIMETRY 01/18/2014 31501 ROUT INE VENIPUNCTURE 03/07/2014 90912 FSH 03/07/2014 45364 LH 03/07/2014 79046 THER APUTIC INJ SQ/IM 03/07/2014 J1885 KANE DOL INJ 03/07/2014 11838 THER APUTIC INJ SQ/IM 05/05/2014 J1885 KANE DOL INJ 05/05/2014 01457 ROUT INE VENIPUNCTURE 08/07/2014 03594 AMYLASE 08/07/2014 80281 LIPASE 08/07/2014 35781 THER APUTIC INJ SQ/IM 08/28/2014 J1885 KANE DOL INJ 08/28/2014 Results Test Result Range SUREPATH PAP AND HPV mRNA E6/E7 - 14:25 CLINICAL INFORMATION: NRG LMP: NRG PREV. PAP: NRG PREV. BX: NRG SOURCE: Cervix NRG STATEMENT OF ADEQUACY: NRG INTERPRETATION/RESULT: NRG NATIONAL INVESTIGATIVE PRODUCER: NRG HPV mRNA E6/E7, SUREPATH VIAL Not Detected NOT DETECTED COMMENT NRG CULTURE, ANAEROBIC AND AEROBIC - 9 13:00 CULTURE, ANAEROBIC BACTERIA W/GRAM STAIN SEE NOTE NRG CULTURE, AEROBIC BACTERIA SEE NOTE NRG Encounters ACCT No. Visit Date/Time Discharge Status Pt. Type Provider Facility Loc./Unit Complaint [id number] 09/01/2014 08:11:00 09/01/2014 23:59: 59 CLS Outpatient HUERTDANIA APONTE MD [id number] 08/28/2014 12:44:00 08/28/2014 23:59: 59 CLS Outpatient VIRGINIA WAITE DO Estephania [id number] 08/07/2014 14:05:00 08/07/2014 23:59: 59 CLS Outpatient VIRGINIA WAITE DO Estephania [id number] 07/07/2014 08:02:00 07/07/2014 23:59: 59 CLS Outpatient DANIA JIMÉNEZ MD [id number] 06/07/2014 14:29:00 06/07/2014 23:59: 59 CLS Outpatient MADL TITLE INSPECTOR, KYLAH L [id number] 05/05/2014 15:50:00 05/05/2014 23:59: 59 CLS Outpatient MADL TITLE INSPECTOR, [place]LA[facility] L [id number] 04/20/2014 07:53:00 04/20/2014 23:59: 59 CLS Outpatient CLIFTON DDALBA Humphrey [id number] 03/07/2014 10:20:00 03/07/2014 23:59: 59 CLS Outpatient MADL TITLE INSPECTOR, [place]LA[facility] L [id number] 02/03/2014 09:56:00 02/03/2014 23:59: 59 CLS Outpatient MADL TITLE INSPECTOR, [place]LA[facility] L [id number] 01/18/2014 11:43:00 01/18/2014 23:59: 59 CLS Outpatient POORNIMA ARIZA APRN [place] [id number] 01/02/2014 09:43:00 01/02/2014 23:59: 59 CLS Outpatient MADL TITLE INSPECTOR, [place]LA[facility] L [id number] 11/30/2013 08:51:00 11/30/2013 23:59: 59 CLS Outpatient MADL TITLE INSPECTOR, [place] L [id number] 11/08/2013 08:33:00 11/08/2013 23:59: 59 [place] [id number] 11/24/2018 14:00:00 11/24/2018 23:59:5 9 CLS Outpatient JÚNIOR GREEN[facility] [id number] 02/15/2019 09:40:00 Document Registration [id number] 11/24/2018 14:00:00 Document Registration [id number] 04/17/2019 08:43:00 09:51:00 DIS Emergency ANALY STOREY MD Via [facility] ER LOW BACK PAIN; NASAL PA IN [id number] 03/24/2019 09:36:00 23:59:59 CLS Outpatient SHEMAR ECHOLS MD (DDU) Via [facility] RAD DDU [id number] 01/16/2019 06:45:00 07:38:00 DIS Outpatient ANALY STOREY MD [facility] ER SEVERE HIP PAIN [id number] 11/26/2018 09:28:00 019 23:59:59 CLS Preadmit [place] 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 [facility] RAD SCREENING [id number] 01/13/2018 08:06:00 018 23:59:59 CLS Outpatient MATTHEW RODRIGUEZ DO [facility] RAD INTERVERTEBRAL DISC DEGENERATION M51.37 [id number] 12/18/2017 10:10:00 018 14:21:00 DIS Outpatient TOÑITO BROWN APRN [facility] REHAB LUMBAGO; LUMBAR RADICULOPATHY; DDD [id number] 09/16/2017 09:29:00 018 23:59:59 CLS Preadmit MATTHEW RODRIGUEZ DO [facility] RAD LUMBAR RADICULOPATHY M 54.16 [id number] 08/27/2017 12:55:00 018 14:03:00 DIS Outpatient MATTHEW RODRIGUEZ DO [facility] CARD LUMBAR SPONDYLO SIS [id number] 07/02/2017 13:19:00 018 13:55:00 DIS Outpatient MATTHEW RODRIGUEZ DO [facility] CARD LUMBAR SPONDYLO SIS [id number] 07/25/2016 10:23:00 017 11:16:00 DIS Outpatient ALBA SMALLS MD [facility] CARD DISC DISORDER, SACROCOC CYGEAL DISORDER [id number] 06/06/2016 09:11:00 017 23:59:59 CLS Outpatient ALBA SMALLS MD [facility] RAD LOW BACK PAIN [id number] 04/25/2016 16:18:00 016 17:04:00 DIS Outpatient ALBA SMALLS MD [facility] CARD DISC DISORDER [id number] 02/08/2016 09:37:00 016 10:31:00 DIS Outpatient ALBA SMALLS MD [facility] CARD DISC DISORDER W/RADICUL OPATHY [id number] 11/26/2015 13:40:00 016 14:15:00 DIS Outpatient ALBA SMALLS MD [facility] CARD DISC DISORDER W/RADICUL OPATHY [id number] 09/14/2015 07:30:00 016 08:22:00 DIS Outpatient ALBA SMALLS MD [facility] CARD DISC DISORDER W/RADICUL OPATHY [id number] 08/17/2015 07:48:00 016 09:05:00 DIS Outpatient ALBA SMALLS MD [facility] CARD DISC DISORDER W/RADICUL OPATHY [id number] 05/08/2015 11:07:00 015 15:00:00 DIS [facility];CONSTIPATION [id number] 05/02/2015 07:23:00 015 23:59:59 CLS Outpatient PAM ABBOTT DO [facility] PREOP [id number] 10/07/2013 00:21:00 014 00:52:00 DIS Emergency KENNY HENRY MD [facility] ER LEFT HAND -INDEX FINGER LAC [id number] 11/13/2012 14:03:00 013 15:55:00 DIS Emergency EDI KELLEY MD [facility] ER PANCREATITIS FLARE UP [id number] 11/09/2012 08:24:00 013 23:59:59 CLS Outpatient LARON HOUGH MD [facility] RAD [id number] 10/22/2012 02:20:00 013 13:50:00 DIS Inpatient GIANLUCA GREEN, LARON Carranza [facility] 4TH PNEUMONIA,HYPONATREMIA,HYPOKALEMIA,ANXIETY [id number] 10/14/2012 08:51:00 013 23:59:59 CLS Outpatient CISCO STACK MD [facility] RAD COUGH/SOA [id number] 10/05/2012 14:19:00 013 16:20:00 DIS Emergency COURTNEY CRUZ, JERAMIE Montalvo [facility] ER FALL LEFT WRIST/LEFT A NKLE INJURY [id number] 09/29/2012 19:34:00 23:59:59 CLS Outpatient [id number] 01/30/2016 11:08:00 Document Registration [id number] 08/10/2015 08:53:00 Document Registration [id number] 05/13/2012 19:09:00 Document Registration [id number] 01/25/2012 14:01:00 Document Registration [id number] 11/21/2011 16:32:00 Document Registration [id number] 07/29/2011 08:54:00 Document Registration [id number] 07/24/2011 08:43:00 Document Registration [id number] 06/02/2011 00:00:00 Document Registration [id number] 03/03/2011 08:00:00 Document Registration [id number] 04/18/2010 07:56:00 Document Registration [id number] 04/17/2010 08:56:00 Document Registration
== END 2019-04-17 09:51 | disposition home or self-care (01) ==
LOC: EDUNIT# 08:41 → ER 08:43
DX: M54.5 Low back pain (principal); G89.29 Other chronic pain; L03.211 Cellulitis of face; F32.9 Major depressive disorder, single episode, unspecified; F17.210 Nicotine dependence, cigarettes, uncomplicated; Z88.2 Allergy status to sulfonamides; Z88.8 Allergy status to other drugs, medicaments and biological substances; Z82.49 Family history of ischemic heart disease and other diseases of the circulatory system
CPT/HCPCS: 96372; 99284

== ENCOUNTER → 2021-01-31 | Outpatient (CLI) | payer MEDICAID ==
[~2021-01-31] MED LIST changes: +ALPR.25T PO; -ALPR0.254 PO; +AMOX-358 PO; -TRAZ-190 PO; +TRAZ-227 PO
--- NOTE | 2021-01-31 12:49 | Diagnostic Imaging Report ---
PROCEDURE: MRI lumbar spine. TECHNIQUE: Multiplanar, multisequence MRI of the lumbar spine was performed without contrast. INDICATION: Low back pain. COMPARISON: MRI lumbar spine without contrast 01/13/2018. FINDINGS: There are 5 lumbar-type vertebral bodies for the purposes of this report. Grade 1 anterolisthesis of L4 on L5 is similar to the prior exam. Vertebral body heights are preserved. Normal bone marrow signal. No abnormal signal in the conus which terminates at L1. Normal morphology of the cauda equina. Visualized paravertebral soft tissues are unremarkable. L1-L2: Normal. L2-L3: Normal. L3-L4: Mild annular disc bulging and facet arthropathy result in mild lateral recess and neural foraminal narrowing. No spinal canal narrowing. L4-L5: The anterolisthesis, ligamentous hypertrophy and facet arthropathy all result in severe bilateral lateral recess narrowing. Mild spinal canal narrowing. Moderate right and mild left neural foraminal narrowing. L5-S1: Advanced facet arthropathy results in moderate bilateral lateral recess narrowing. No spinal canal narrowing. Mild bilateral neural foraminal narrowing. IMPRESSION: 1. Spondylotic changes result in severe bilateral lateral recess narrowing and moderate right neural foraminal narrowing at L4-L5. There is also moderate bilateral lateral recess narrowing at L5-S1. 2. No high-grade spinal canal stenosis. 3. No acute osseous findings. Dictated by: Dictated on workstation # [id number]
--- NOTE | 2021-01-31 12:59 | Diagnostic Imaging Report ---
EXAM: MRI THORACIC SPINE W/O CON INDICATION: Increasing back pain. COMPARISON: None. FINDINGS: Normal alignment. Vertebral body heights preserved. Mild Modic type I degenerative endplate changes at T7-T8. No substantial spondylotic change. No spinal canal or neural foraminal narrowing. No abnormal signal in the thoracic spinal cord. Visualized paravertebral soft tissues are unremarkable. IMPRESSION: Mild spondylotic changes in the thoracic spine. No neural impingement. No abnormal signal in the thoracic spinal cord. Dictated by: Dictated on workstation # [id number]
== END ==
LOC: RAD 09:14
PROVIDERS: ATTEND Physician Assistant
DX: M47.26 Other spondylosis with radiculopathy, lumbar region (principal); M47.814 Spondylosis without myelopathy or radiculopathy, thoracic region; M48.061 Spinal stenosis, lumbar region without neurogenic claudication; M48.07 Spinal stenosis, lumbosacral region; M43.16 Spondylolisthesis, lumbar region
CPT/HCPCS: 72146; 72148

== ENCOUNTER → 2021-06-17 | Outpatient (CLI) | payer MEDICARE, MEDICAID ==
[~2021-06-17] MED LIST changes: +CYCL10TA25 PO; -CYCL10TA9 PO
--- NOTE | 2021-06-17 11:08 | Diagnostic Imaging Report ---
INDICATION: Back pain. TIME OF EXAM: 10:53 AM AP and lateral views as well as lateral flexion and extension views of the lumbar spine were obtained. Curvature is normal. There is grade 1 spondylolisthesis of L5 on S1 on the neutral view. There may be slight anterolisthesis of L4 on L5 as well on the neutral view. Degree of anterolisthesis of L4 on L5 does appear to be increased during flexion. All other levels remain stable. Vertebral body heights are maintained. Disc spaces are preserved. No fractures are seen. IMPRESSION: There is some mild anterolisthesis of L4 on L5 and L5 on S1. There appears to be some mild motion at L4-L5 during flexion maneuver. Dictated by: Dictated on workstation # [id number]
== END ==
LOC: RAD 10:27
PROVIDERS: ATTEND Neurological Surgery
DX: M43.17 Spondylolisthesis, lumbosacral region (principal); M54.17 Radiculopathy, lumbosacral region; M46.1 Sacroiliitis, not elsewhere classified
CPT/HCPCS: 72110

== ENCOUNTER 2021-08-18 07:29 | Emergency (ER) | payer MEDICARE, MEDICAID ==
[~2021-08-18] VITALS: Ht 157.4 cm; Wt 52.1 kg
[2021-08-18] MEDS ORDERED: ORPHENADRINE 60 MG/2 ML (NORFLEX) AMP (ED ONLY) IM STA (07:46)
[2021-08-18] MEDS ORDERED: KETOROLAC 30 MG/ML VIAL IM STA (07:46)
[2021-08-18] MEDS ORDERED: HYDROcodone/APAP 5 MG/325 MG (LORTAB) TAB PO ONE (08:00)
--- NOTE | 2021-08-18 08:12 | ED Fall/Injury ---
General Chief Complaint: Chest Wall Stated Complaint: FALL - RIB PAIN Nursing Triage Note: PT STATES SHE FELL OFF THE COUNTER THURSDAY NIGHT/THURSDAY AM WHILE TRYING TO CHANGE A LIGHT BULB, PT C/O RIGHT SIDED RIB PAIN AND SOB. Source: patient Exam Limitations: no limitations History of Present Illness Date Seen by Provider: Aug 18, 2021 Time Seen by Provider: 07:39 Initial Comments Here with right rib pain after fall early Thursday morning (yesterday). States that she was climbing a counter to change a light bulb in the bathroom when her right hip gave out. She fell down and landed on her right leg. Her right knee hit her chest and then she hit her chest on the toilet and her head on the wall. Denies loss of consciousness. Denies pain tingling in the region except for right ribs lateral aspect. Does report pain with deep breathing. Denies nausea, vomiting, dizziness or weakness. She is walking and talking without difficulty. Occurred: yesterday Severity: moderate Injuries/Pain Location: chest Context: other Loss of Consciousness: no loss of consciousness Modifying Factors: Worse With Movement Associated Symptoms (Fall): Chest Pain (Right chest wall); No Confusion, No Dizziness, No Headache, No Lightheadedness; Muscle Spasms (Right chest); No Nausea/Vomiting, No Neck Pain, No Slurred Speech, No Trouble Walking Allergies and Home Medications Allergies Coded Allergies: simvastatin (Unverified Allergy, Mild, 06/30/12) Sulfa (Sulfonamide Antibiotics) (Unverified Allergy, Unknown, 10/22/12) Patient Home Medication List Home Medication List Reviewed: Yes Amoxicillin/Potassium Clav (Augmentin 875-125 Tablet) 1 Each Tablet, 1 EACH PO BID Prescribed by: ANALY STOREY MD on 04/17/19 0941 Naproxen (Naproxen) 500 Mg Tablet, 500 MG PO BID, (Reported) Entered as Reported by: PRISCILA SIERRA on 05/02/15 1319 Trazodone HCl (Trazodone HCl) 100 Mg Tablet, 100 MG PO HS, (Reported) Entered as Reported by: PRISCILA SIERRA on 05/02/15 1319 Review of Systems Review of Systems Constitutional: see HPI; No chills, No fever Ears, Nose, Mouth, Throat: no symptoms reported Respiratory: No cough, No short of breath; other (Pain with deep breathing along the right chest wall lateral aspect) Cardiovascular: see HPI; No edema Gastrointestinal: No nausea, No vomiting Skin: No change in color, No lesions Psychiatric/Neurological: No Symptoms Reported Past Nsbnpwv-Derwvd-Wfyugz Hx Patient Social History Tobacco Use?: Yes Tobacco type used: Cigarettes Smoking Status: Current Everyday Smoker Substance use?: No Alcohol Use?: No Pt feels they are or have been: No Immunizations Up To Date Tetanus Booster (TDap): Less than 5yrs Seasonal Allergies Seasonal Allergies: No Past Medical History Surgeries: Yes (DXLS FOR OVARIAN CYST X3, STENT IN PANCREAS, LEFT SHOULDER, LEFT KNEE) Section, Orthopedic Respiratory: Yes (tobaccoism) Chronic Bronchitis Cardiac: No Neurological: Yes Reproductive Disorders: Yes Female Reproductive Disorders: Ovarian Cyst Sexually Transmitted Disease: No HIV/AIDS: No Gastrointestinal: Yes (CONSTIPATION, HX OF STENT IN PANCREAS) Pancreatitis Musculoskeletal: Yes Degenerate Disk Disease, Chronic Back Pain Endocrine: No Loss of Vision: Denies Hearing Impairment: Denies Cancer: No Psychosocial: Yes (INSOMNIA) Depression Integumentary: No Blood Disorders: No Adverse Reaction/Blood Tranf: No Family Medical History Reviewed Nursing Family Hx Heart Disease, Hypertension Physical Exam Vital Signs Vital Signs - First Documented 08/18/21 07:40 Temp 36.6 Pulse 113 Resp 22 B/P (MAP) 131/81 (98) O2 Delivery Room Air Capillary Refill : Less Than 3 Seconds Height, Weight, BMI Height: 5'23.00" Weight: 135lbs. 0.0oz. 61.558504yr; 21.00 BMI Method:Stated General Appearance: WD/WN, no apparent distress HEENT: PERRL/EOMI, pharynx normal Neck: non-tender, full range of motion, supple, normal inspection Cardiovascular: no murmur, tachycardia Respiratory: lungs clear, normal breath sounds, other (Tender right lateral chest wall below the breast line without contusion, abrasion or deformity) Gastrointestinal: non tender, soft Neurologic/Psychiatric: alert, oriented x 3 Skin: normal color, warm/dry [place] Coma Score Best Eye Response: (4) Open Spontaneously Best Verbal Response: (5) Oriented Best Motor Response: (6) Obeys Commands Progress/Results/Core Measures Results/Orders My Orders Orders - LARY HILL MD Hydrocodone/Apap 5/325 Tablet (Lortab 5 (08/18/21 08:00) Ketorolac Injection (Toradol Injection) (08/18/21 07:46) Orphenadrine Inj (Ed Only) (Norflex Inje (08/18/21 07:46) Ribs/Unilateral With Chest (08/18/21 07:49) Medications Given in ED Current Medications Medications Dose Ordered Sig/Huang Route Start Time Stop Time Status Last Admin Dose Admin Acetaminophen/ Hydrocodone Bitart 1 ea ONCE ONCE PO 08/18/21 08:00 08/18/21 08:01 DC 08/18/21 07:58 1 EA Vital Signs/I&O 08/18/21 08/18/21 07:40 07:40 Temp 36.6 Pulse 113 Resp 22 B/P (MAP) 131/81 (98) O2 Delivery Room Air Room Air Blood Pressure Mean: 98 Progress Progress Note : Progress Note Seen and evaluated. X-ray chest and right ribs ordered. Toradol 30 mg IM, Norflex 60 mg IM and hydrocodone 5/325 1 tab p.o. ordered. Monitor patient. 0838: Overall doing better. No acute fractures on x-ray. Discharged home with return precautions. Patient verbalized understanding instructions and agreement with plan. Diagnostic Imaging Diagonstic Imaging: Xray Plain Films/CT/US/NM/MRI: chest, other Comments [facility] [place] NAME: EDINSON [facility] REC#: [id number] PT STATUS: REG ER : 1965 PHYSICIAN: LARY HILL MD ADMIT DATE: 08/18/21/ER Draft Date of Exam:08/18/21 RIBS/UNILATERAL WITH CHEST Patient History: Chest and right rib pain. Fall.. Technique: 4 views of the chest and right ribs. Comparison: 11/13/2012. FINDINGS: The lung volumes are normal. No focal consolidation is seen. No large pleural effusion or pneumothorax is seen. The cardiomediastinal silhouette is normal in size and contour. No acute osseous abnormality is seen. No acute displaced right-sided rib fractures. IMPRESSION: 1. No acute process in the chest. 2. No acute displaced right-sided rib fractures. Dictated on workstation # [id number] Dict: 08/18/21812 Trans: 08/18/2115 [facility] [id number] Interpreted by: FRANCISCA TUTTLE DO Electronically signed by: Departure Impression Primary Impression: Contusion of rib on right side Qualified Codes: S20.211A - Contusion of right front wall of thorax, initial encounter Disposition: 01 HOME, SELF-CARE Condition: Stable Departure-Patient Inst. Decision time for Depature: 08:39 Referrals: [facility] (PCP) Primary Care Physician DANIA LOERA (Family) Primary Care Physician Patient Instructions: Bruised Rib (DC) Add. Discharge Instructions: All discharge instructions reviewed with patient and/or family. Voiced unders tanding. Continue previously prescribed medicines as prescribed. You may take aljp-rgv-tsibgzn Tylenol/acetaminophen and/or ibuprofen per package directions. You may use topical agents such as icy hot with lidocaine, Aspercreme with lidocaine, Salonpas with lidocaine or similar to area of concern per package directions to reduce pain. You may use a pillow or blanket to splint the chest when coughing or deep breathing. Return for worse pain, fever, vomiting, weakness, breathing problems or other concerns as needed. Follow-up with your doctor in a few days for recheck and further evaluation and to discuss further medications as needed. LARY HILL MD Aug 18, 2021 08:12
--- NOTE | 2021-08-18 08:15 | Diagnostic Imaging Report ---
Patient History: Chest and right rib pain. Fall.. Technique: 4 views of the chest and right ribs. Comparison: 11/13/2012. FINDINGS: The lung volumes are normal. No focal consolidation is seen. No large pleural effusion or pneumothorax is seen. The cardiomediastinal silhouette is normal in size and contour. No acute osseous abnormality is seen. No acute displaced right-sided rib fractures. IMPRESSION: 1. No acute process in the chest. 2. No acute displaced right-sided rib fractures. Dictated by: Dictated on workstation # [id number]
[2021-08-18 09:00] VITALS: BP 115/74
== END 2021-08-18 09:00 | disposition home or self-care (01) ==
LOC: EDUNIT# 07:29 → ER 07:30
DX: S20.211A Contusion of right front wall of thorax, initial encounter (principal); F17.210 Nicotine dependence, cigarettes, uncomplicated; W17.89XA Other fall from one level to another, initial encounter; Y92.002 Bathroom of unspecified non-institutional (private) residence as the place of occurrence of the external cause
CPT/HCPCS: 71101

== ENCOUNTER 2022-01-08 23:48 | Emergency (ER) | payer MEDICARE, MEDICAID ==
[2022-01-09 00:09] VITALS: BP 102/68
[2022-01-09] MEDS ORDERED: KETOROLAC 60 MG/2 ML VIAL IM ONE (02:00)
[2022-01-09] MEDS ORDERED: ORPHENADRINE 60 MG/2 ML (NORFLEX) AMP (ED ONLY) IM ONE (02:00)
--- NOTE | 2022-01-09 02:02 | ED Back Pain ---
General Chief Complaint: Back Problems Stated Complaint: BACK & HIP PX Nursing Triage Note: pt reports low back and right hip pain since fall in august. reports pain has increased since thursday. denies new injury. pt ambulated without issue. Source of Information: Patient Exam Limitations: No Limitations History of Present Illness Date Seen by Provider: Jan 09, 2022 Time Seen by Provider: 01:32 Initial Comments Patient to the ER by private conveyance with chief complaint that for the several years has been dealing with sciatic back pain in her right side. She says she had a fall in August, on her right side, 5 months ago. She follows with Dr. Cedeno for pain management in [place] as well as Ortho for states she has a surgeon to do injections on her hips every 3 months. She had her last injection on Thursday. She is not sure what in the injections. She feels like after that last injection her pain has been a little worse. She says she does not use narcotics just an occasional Tylenol Motrin and cyclobenzaprine. She been using ice, heating pads, topical creams without significant relief of her pain. She has her TENS unit on. Allergies and Home Medications Allergies Coded Allergies: simvastatin (Unverified Allergy, Mild, 06/30/12) Sulfa (Sulfonamide Antibiotics) (Unverified Allergy, Unknown, 10/22/12) Patient Home Medication List Home Medication List Reviewed: Yes Amoxicillin/Potassium Clav (Augmentin 875-125 Tablet) 1 Each Tablet, 1 EACH PO BID Prescribed by: ANALY STOREY MD on 04/17/19 0941 Naproxen (Naproxen) 500 Mg Tablet, 500 MG PO BID, (Reported) Entered as Reported by: PRISCILA SIERRA on 05/02/15 1319 Trazodone HCl (Trazodone HCl) 100 Mg Tablet, 100 MG PO HS, (Reported) Entered as Reported by: PRISCILA SIERRA on 05/02/15 1319 Review of Systems Constitutional: No chills, No diaphoresis EENTM: No ear discharge, No ear pain Respiratory: No cough, No short of breath Cardiovascular: No chest pain, No edema Gastrointestinal: No abdominal pain, No constipation, No diarrhea, No nausea Genitourinary: No discharge, No dysuria Musculoskeletal: see HPI, back pain; No joint pain All Other Systems Reviewed Negative Unless Noted: Yes Past Xtyxgka-Hifckk-Ispupu Hx Patient Social History Tobacco Use?: Yes Smoking Status: Current Everyday Smoker Substance use?: No Alcohol Use?: No Pt feels they are or have been: No Immunizations Up To Date Tetanus Booster (TDap): Less than 5yrs Influenza Vaccine Up-to-Date: No; Not Current Seasonal Allergies Seasonal Allergies: No Past Medical History Surgeries: Yes (DXLS FOR OVARIAN CYST X3, STENT IN PANCREAS, LEFT SHOULDER, LEFT KNEE) Section, Orthopedic Respiratory: Yes (tobaccoism) Chronic Bronchitis Cardiac: No Neurological: Yes Reproductive Disorders: Yes Female Reproductive Disorders: Ovarian Cyst Sexually Transmitted Disease: No HIV/AIDS: No Gastrointestinal: Yes (CONSTIPATION, HX OF STENT IN PANCREAS) Pancreatitis Musculoskeletal: Yes Degenerate Disk Disease, Chronic Back Pain Endocrine: No Loss of Vision: Denies Hearing Impairment: Denies Cancer: No Psychosocial: Yes (INSOMNIA) Depression Integumentary: No Blood Disorders: No Adverse Reaction/Blood Tranf: No Family Medical History Heart Disease, Hypertension Physical Exam Vital Signs Vital Signs - First Documented 01/09/22 00:09 Temp 36.7 Pulse 114 Resp 18 B/P (MAP) 102/68 (79) Pulse Ox 99 Capillary Refill : Height, Weight, BMI Height: 5'23.00" Weight: 135lbs. 0.0oz. 61.792480em; 21.00 BMI Method:Stated General Appearance: No Apparent Distress, WD/WN HEENT: PERRL/EOMI, Pharynx Normal, Moist Mucous Membranes Neck: Normal Inspection, Non Tender Cardiovascular: Regular Rate, Rhythm, No Edema, Normal Peripheral Pulses Respiratory: Lungs Clear, Normal Breath Sounds, No Accessory Muscle Use, No Respiratory Distress Peripheral Pulses: 2+ Radial Pulses (R), 2+ Radial Pulses (L) Gastrointestinal: Normal Bowel Sounds, No Organomegaly, Non Tender, Soft Back: Normal Inspection, No Vertebral Tenderness, Muscle Spasm (Paravertebral muscle spasms and tenderness on the right lumbar side) Extremity: Normal Capillary Refill, Normal Inspection, Non Tender Neurologic/Psychiatric: Alert, Oriented x3 Progress/Results/Core Measures Results/Orders My Orders Orders - JOSE L BARCENAS Orphenadrine Inj (Ed Only) (Norflex Inje (01/09/22 02:00) Ketorolac Injection (Toradol Injection) (01/09/22 02:00) Vital Signs/I&O 01/09/22 00:09 Temp 36.7 Pulse 114 Resp 18 B/P (MAP) 102/68 (79) Pulse Ox 99 Blood Pressure Mean: 79 Progress Progress Note : Time: 02:00 Progress Note No red flag signs. This is chronic pain. 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 Initial ECG Impression Date: Jan 09, 2022 Initial ECG Impression Time: 00:38 Initial ECG Rate: 81 Initial ECG Rhythm: Normal Sinus Initial ECG Intervals: Normal Initial ECG Impression: Normal Comment Normal sinus rhythm without clinically relevant ST elevation or depression Departure Impression Primary Impression: Lumbago with sciatica, right side Qualified Codes: M54.41 - Lumbago with sciatica, right side Disposition: 01 HOME, SELF-CARE Condition: Stable Departure-Patient Inst. Decision time for Depature: 02:00 Referrals: NO,LOCAL PHYSICIAN (PCP/Family) Primary Care Physician Patient Instructions: Sciatica Exercises, Low Back Pain (DC) Add. Discharge Instructions: Make sure you are drinking plenty of fluids. Use ice for the first couple days for 20 minutes every 2 hours while awake. Warm moist heat and topical creams such as icy hot or creams with capsaicin oil are often helpful. Tylenol 650 mg every 8 hours as necessary for pain. Start a regimen of NSAIDs daily to reduce the inflammation in your back. Ibuprofen 800 mg every 8 hours or naproxen 500 mg twice a day. Stay active moving around the house and doing your stretching exercises. Do not lift, push or pull greater than 20 pounds until cleared by a doctor. Obtain a back brace and wear it on the days that you need it. Follow the stretching exercises and consider engaging in a course of physical therapy. You may follow-up with [facility] physical therapy by calling for a no upfront cost evaluation at [phone]. You should also seek help through your primary care office and managing your symptoms. Promptly return to the ER if you experience numbness in your saddle region, inability to urinate, or falls caused by weakness or numbness in your legs. All discharge instructions reviewed with patient and/or family. Voiced understanding. JOSE L BARCENAS Jan 09, 2022 02:02
== END 2022-01-09 02:28 | disposition home or self-care (01) ==
LOC: EDUNIT# 23:48 → ER 23:52
DX: M54.41 Lumbago with sciatica, right side (principal); F17.200 Nicotine dependence, unspecified, uncomplicated; Z87.39 Personal history of other diseases of the musculoskeletal system and connective tissue; Z28.310 Unvaccinated for COVID-19
CPT/HCPCS: 99284

== ENCOUNTER → 2022-01-20 | Outpatient (CLI) | payer MEDICARE, MEDICAID ==
[~2022-01-20] VITALS: Ht 157.5 cm; Wt 54.5 kg
[~2022-01-20] MED LIST changes: +GADOTERATE 0.5 MMOL/ML (CLARISCAN) 15 ML VIAL IV ONE; +IOHEXOL 240 MGI/ML 50 ML (OMNIPAQUE) VIAL IV ONE; +LIDOCAINE 1% INJ 10 ML VIAL INJ ONE; +LIDOCAINE 1% INJ 10 ML VIAL ONE
--- NOTE | 2022-01-20 15:26 | Diagnostic Imaging Report ---
EXAMINATION: Magnetic resonance imaging of the pelvis and right hip with intra-articular contrast. DATE: January 20, 2022. COMPARISON: Pelvis and hip radiographs March 24, 2019. Right hip arthrogram January 20, 2022. INDICATION: 56-year-old female, chronic right hip pain. TECHNIQUE: Magnetic Resonance Imaging sequences were performed of the pelvis and right hip following the intra-articular administration of contrast. FINDINGS: TENDONS AND MUSCLES: The gluteus danielle muscles and their origins and insertions are intact bilaterally. The tendons and muscles of the greater trochanter - gluteus minimus, piriformis and gluteus medius - are intact bilaterally. Both common hamstring attachments on the ischial tuberosities are intact and the extensor muscles of the thigh are intact. The visualized portions of the flexors and adductor muscles of the thigh and their attachments on the pelvis and hips are intact. Both iliopsoas and iliacus muscles are intact. The bilateral iliopsoas tendons are intact. HIPS AND SACROILIAC JOINTS: There is no discretely identified labral tear of the right hip. The articular cartilage appears intact. There is no identified intra-articular body or prominent synovitis. There is no identified paralabral cyst. The right hip alpha angle is measured at 51 degrees. There is no identified labral tear of the left hip or paralabral cyst on large field of view assessment. There is no left hip joint effusion. There is no identified joint space loss of the left hip. The sacroiliac joints are unremarkable. LUMBAR SPINE: The visible portions of the lumbar spine are unremarkable on limited assessment. BONE: The bones all have normal configuration. The bone marrow signal is within normal limits. Specifically, negative for fracture, osteomyelitis, osteonecrosis, or marrow replacing process. BURSAE AND SOFT TISSUES: The bursae and soft tissues surrounding the pelvis and hips are within normal limits. IMPRESSION: 1. No identified right hip labral tear. Unremarkable evaluation of both hips. 2. Intact muscles and tendons. 3. No acute fracture, bone contusion, or other notable bone marrow signal abnormality. 4. Unremarkable bursal and additional soft tissue assessment. Dictated by: Dictated on workstation # [id number]
--- NOTE | 2022-01-20 17:46 | Diagnostic Imaging Report ---
INDICATION: Right hip pain. Patient was brought to the procedure room and placed on table in the supine position. Skin of the right hip was prepped and draped in the usual sterile fashion. Small amount of 1% lidocaine was utilized for local anesthesia. 20-gauge needle was advanced and placed with its tip in the intracapsular location at the femoral head neck junction laterally. 15 mm solution of iodinated contrast, normal saline and gadolinium was injected under fluoroscopic observation. Needle was removed and hemostasis was obtained. A total of 11 seconds of fluoroscopic time was utilized. 2 images were obtained. Patient was sent to MRI in satisfactory condition. IMPRESSION: Successful right hip injection of gadolinium contrast solution, using fluoroscopy. Dictated by: Dictated on workstation # [id number]
== END ==
LOC: RAD 13:20
PROVIDERS: ATTEND Anesthesiology Pain Medicine
DX: M25.551 Pain in right hip (principal); G89.29 Other chronic pain
CPT/HCPCS: 27093; 73525; 73722